=== PATIENT | female | born 1935 | race Caucasian/White ===

== ENCOUNTER → 2019-05-05 | Outpatient (CLI) | payer MEDICARE ==
--- NOTE | 2019-05-05 14:24 | Diagnostic Imaging Report ---
INDICATION: Left breast carcinoma, status post lumpectomy in 2017. Patient reportedly had a recent mammogram in January 2019. Patient reports left arm swelling and lump in the left axilla. COMPARISON: The patient's prior imaging is not available for comparison. FINDINGS: Sonographic interrogation of the area of swelling in the left axilla was performed. There is a large solid-appearing heterogeneous mass at this location measuring 4.2 x 2.5 x 3.8 cm. There is also an enlarged lymph node adjacent to this measuring 2.1 x 2.1 x 2.4 cm. Sonographic interrogation of the lumpectomy site was also performed. There is an irregular region of hypoechogenicity at the lumpectomy site. This could be post surgical. No fluid collection is seen. There does appear to be skin thickening. IMPRESSION: Large solid masses in the left axilla correlating with the patient's palpable abnormality. 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 Tissue sampling could be performed if clinically necessary using ultrasound guidance. Diagnostic mammography would be a consideration as well; however, we would need outside mammographic studies for comparison purposes. ACR BI-RADS Category 4: Suspicious abnormality. Result letter will be mailed to the patient. Note: At least 10% of breast cancer is not imaged by mammography. Dictated by: Dictated on workstation # [id number]
== END ==
LOC: RAD 10:59
PROVIDERS: ATTEND Internal Medicine Hematology & Oncology
DX: C50.912 Malignant neoplasm of unspecified site of left female breast (principal); R22.32 Localized swelling, mass and lump, left upper limb; Z98.890 Other specified postprocedural states
CPT/HCPCS: 76641

== ENCOUNTER → 2019-05-14 | Outpatient (CLI) | payer MEDICARE ==
[~2019-05-14] MED LIST: BARIUM SUSPENSION 2.1% (VANILLA SILQ) 450 ML PO ONE; CATHETER FLUSH 10 ML SYR IV PRN; HOLD METFORMIN - RECEIVED CONTRAST 20 ML VIAL IV SCH; IOHEXOL 350 MG/ML 100 ML (OMNIPAQUE 350) VIAL IV ONE; NS 100 ML (IVPB) BAG IV ONE
--- NOTE | 2019-05-14 13:10 | Diagnostic Imaging Report ---
PROCEDURE: CT chest, abdomen, and pelvis with contrast. TECHNIQUE: Multiple contiguous axial images were obtained through the chest, abdomen, and pelvis after the administration of intravenous contrast. Auto Exposure Controls were utilized during the CT exam to meet ALARA standards for radiation dose reduction. INDICATION: Breast cancer. Findings: No comparison available. There is a 3 mm right upper lobe pulmonary nodule (series 2, image 37). There is a 2 mm left lower lobe pulmonary nodule (series 2, image 44). No other nodules are seen. No edema or pneumonia. No pleural effusion or pneumothorax. Heart size is normal. No pericardial effusion. Aorta is normal in caliber. No central pulmonary embolism. There is a 2.3 x 1.7 cm left breast mass. There is a 3.9 x 3.6 cm left axillary lymph node. No internal mammary lymphadenopathy is seen. The right axillary or supraclavicular lymphadenopathy is seen. There is a 9 mm hyperenhancing focus in hepatic segment 8. A similar pulmonary lesion is seen in segment 5. These equilibrium the delayed phase in keeping with hemangiomas. Gallbladder is absent. No biliary ductal dilation. Portal vein is patent. Pancreas, spleen and left adrenal gland are normal. There is an indeterminate 14 x 18 mm right adrenal nodule. Right renal cyst is seen. No suspicious renal lesions are noted. No hydronephrosis. Urinary bladder is normal. There are no dilated loops of large or small bowel. There is diverticulosis without diverticulitis. There is an indeterminate 3.7 x 2.8 cm left pelvic sidewall fluid attenuation lesion, possibly a seroma or adnexal cyst. No abdominal or pelvic lymphadenopathy. No free fluid or air. Abdominal aorta is normal in caliber. There are no suspicious osseous lesions. Impression: 1. Left breast mass with left axillary lymphadenopathy. 2. There are 2 hyperenhancing liver lesions, consistent with hemangiomas given they equilibrate on the delayed phase. 3. Indeterminate right adrenal nodule, consider adrenal protocol CT. 4. Tiny pulmonary nodules are indeterminate. 5. Fluid attenuation left adnexal lesion, likely a postoperative seroma, but an ultrasound could be performed to determine if it is an ovarian cyst ff the ovaries are still present. Dictated by: Dictated on workstation # [id number]
== END ==
LOC: RAD 10:50
PROVIDERS: ATTEND Internal Medicine Hematology & Oncology
DX: N63.20 Unspecified lump in the left breast, unspecified quadrant (principal); C50.919 Malignant neoplasm of unspecified site of unspecified female breast; K76.9 Liver disease, unspecified; E27.8 Other specified disorders of adrenal gland; N85.8 Other specified noninflammatory disorders of uterus; R59.0 Localized enlarged lymph nodes
CPT/HCPCS: 71260; 74177

== ENCOUNTER → 2019-05-23 | Outpatient (CLI) | payer MEDICARE, OTHER ==
[~2019-05-23] VITALS: Ht 160 cm; Wt 107.0 kg
[~2019-05-23] MED LIST changes: -BARIUM SUSPENSION 2.1% (VANILLA SILQ) 450 ML PO ONE; -CATHETER FLUSH 10 ML SYR IV PRN; -HOLD METFORMIN - RECEIVED CONTRAST 20 ML VIAL IV SCH; -IOHEXOL 350 MG/ML 100 ML (OMNIPAQUE 350) VIAL IV ONE; +LIDOCAINE 1% INJ 20 ML 20 ML VIAL INJ ONE; -NS 100 ML (IVPB) BAG IV ONE
--- NOTE | 2019-05-23 22:59 | Diagnostic Imaging Report ---
INDICATION: Left axillary mass. Patient presents for ultrasound-guided biopsy. Patient was brought to the procedure room, placed on the bed in the supine position. Left arm was raised. Ultrasound imaging of the left breast was performed to evaluate appropriate entry site. Left breast was then prepped and draped in the usual sterile fashion. Small amount of 1% lidocaine was utilized for local anesthesia. Total of 4 core biopsies of a large mass in the left axilla was performed utilizing a 14-gauge Achieve needle. A marker clip was then deployed within the lesion. Needle was removed and hemostasis was obtained using manual compression. Patient tolerated the procedure well and was sent for postprocedure mammogram in satisfactory condition. IMPRESSION: Successful ultrasound guided core biopsy of the large mass in the left axilla. Pathology results are currently pending. Dictated by: Dictated on workstation # [id number]
--- NOTE | 2019-05-23 23:02 | Diagnostic Imaging Report ---
INDICATION: Left axillary mass. Patient is status post ultrasound-guided biopsy. A single 2-D left MLO view was performed post left axillary mass biopsy. This view demonstrates a marker clip within the mass in the left axilla. IMPRESSION: Marker clip located within the left axillary mass. Dictated by: Dictated on workstation # [id number]
== END ==
LOC: RAD 10:44
PROVIDERS: ATTEND Surgery
DX: N63.32 Unspecified lump in axillary tail of the left breast (principal)
CPT/HCPCS: 19083

== ENCOUNTER → 2019-05-27 | Outpatient (CLI) | payer MEDICARE ==
--- NOTE | 2019-05-27 12:59 | Diagnostic Imaging Report ---
INDICATION: Breast carcinoma, restaging. TECHNIQUE: Serum blood glucose level at the time of injection was 123 mg/dL. The patient was administered 14.7 mCi of F-18 FDG intravenously in the right forearm, and PET imaging from the top of the skull to mid thighs was performed. Noncontrast CT was also performed for attenuation correction and anatomic correlation. COMPARISON: No prior PET study is available for comparison. Comparison is made with prior CT of the chest, abdomen, and pelvis from 05/14/2019. FINDINGS: There is symmetric activity throughout the brain. Physiologic activity within the soft tissues of neck is identified. There is hypermetabolism identified in the left supraclavicular region with SUV max of approximately 6.6. This does correspond to some soft tissue density at this location, likely supraclavicular lymphadenopathy. There are multiple foci of abnormal uptake in the region of the left axilla with the dominant mass in the left axilla demonstrating an SUV max of approximately 10.1. This was recently biopsied. There are additional smaller areas of hypermetabolism. Retropectoral nodular regions of uptake are seen with SUV max of approximately 4.6. No hypermetabolism in the left or right breast is seen. No mediastinal or hilar hypermetabolism is identified. No pulmonary parenchymal hypermetabolism is identified. Imaging through the abdomen and pelvis demonstrates physiologic activity within the GI and tracts. There is some mild hypermetabolism associated with the right adrenal nodule with SUV max of approximately 4.8. No other suspicious regions are identified. IMPRESSION: 1. Left supraclavicular as well as left axillary hypermetabolic foci consistent with metastatic disease. No breast hypermetabolism is identified. No mediastinal, hilar, or pulmonary parenchymal hypermetabolism is seen. 2. Hypermetabolism associated with the right adrenal nodule. Metastatic lesion cannot be entirely excluded. No other significant abnormality is seen. Dictated by: Dictated on workstation # [id number]
== END ==
LOC: RAD 10:09
PROVIDERS: ATTEND Internal Medicine Hematology & Oncology
DX: E27.8 Other specified disorders of adrenal gland (principal); C50.919 Malignant neoplasm of unspecified site of unspecified female breast

== ENCOUNTER → 2019-06-09 | Outpatient (CLI) | payer MEDICARE ==
[~2019-06-09] MED LIST changes: -LIDOCAINE 1% INJ 20 ML 20 ML VIAL INJ ONE; +RT-ALBUTEROL SULF 2.5 MG/3 ML PRE-MIX VIAL INH ONE
== END ==
LOC: RT 15:56
PROVIDERS: ATTEND Nurse Practitioner Family
DX: I89.0 Lymphedema, not elsewhere classified (principal); E66.01 Morbid (severe) obesity due to excess calories; R06.00 Dyspnea, unspecified
CPT/HCPCS: 94060; 94726; 94729

== ENCOUNTER → 2019-07-01 | Outpatient (CLI) | payer MEDICARE ==
[~2019-07-01] VITALS: Ht 160 cm; Wt 109.0 kg
[~2019-07-01] MED LIST changes: +CATHETER FLUSH 10 ML SYR IV PRN; +REGADENOSON 0.4 MG/5 ML SYR (LEXISCAN) IV ONE; -RT-ALBUTEROL SULF 2.5 MG/3 ML PRE-MIX VIAL INH ONE
--- NOTE | 2019-07-01 14:26 | Diagnostic Imaging Report ---
PROCEDURE: US carotid duplex, bilateral. TECHNIQUE: Multiple real-time grayscale images were obtained over the carotid arteries in various projections, bilaterally. Additional spectral analysis and color Doppler duplex images were also obtained. INDICATION: Hypertension and coronary artery disease. FINDINGS: No significant plaquing is identified in either carotid system. Velocities are normal bilaterally. No velocity elevation or stenosis is detected. Both vertebral arteries show antegrade flow. IMPRESSION: No evidence of a hemodynamically significant stenosis. Parameters based on the consensus panel Kunz-Scale and Doppler ultrasound criteria published July 2003, Radiology, Volume 229. DOPPLER (peak systolic velocity M/S Right Left CCA .77 .92 ICA Proximal .63 .70 ICA Mid .89 .69 ICA Distal .80 1.2 RATIO 1.2 1.3 ECA .87 .68 VERT .34 .65 Dictated by: Dictated on workstation # [id number]
--- NOTE | 2019-07-03 18:29 | STRESS TEST ---
DATE OF SERVICE: 07/01/2019 RESTING AND POST REGADENOSON TECHNETIUM-99M TETROFOSMIN SPECT CT IMAGING ORDERING PHYSICIAN: Dr. Patiño. PRIMARY CARE PHYSICIAN: Dr. Block. CLINICAL DIAGNOSES: Coronary artery disease, chest discomfort. Baseline images were carried out after injection of 10.41 mCi of technetium-99m Tetrofosmin. This was followed by 0.4 mg regadenoson and 10.46 mCi of technetium-99m Tetrofosmin for stress imaging. The electrocardiogram showed sinus rhythm with nonspecific ST abnormality at baseline. The electrocardiogram did not change significantly with the regadenoson infusion. Review of images at rest and following stress does not indicate any significant perfusion defects consistent with significant myocardial ischemia or infarction. Gated images show normal global left ventricular systolic function with normal regional wall motion. Left ventricular ejection fraction is calculated to be 71%. Left ventricular end diastolic volume is 51 mL. TID is absent (1.02). CONCLUSIONS: 1. No evidence of any significant myocardial ischemia or infarction on this study. 2. Normal regional wall motion. 3. Normal global left ventricular systolic function with a calculated ejection fraction of 71%. Job ID: [id number] DocumentID: [id number] Dictated Date: 07/03/2019 17:34:34 [employer] Date: 07/03/2019 18:28:01 Dictated By: BARTOLO PATIÑO MD, MA, FACP, FACC,
== END ==
LOC: CARD 07:43
PROVIDERS: ATTEND Internal Medicine Cardiovascular Disease
DX: I25.10 Atherosclerotic heart disease of native coronary artery without angina pectoris (principal); I10 Essential (primary) hypertension; J44.9 Chronic obstructive pulmonary disease, unspecified
CPT/HCPCS: 78452; 93017; 93880

== ENCOUNTER 2019-07-17 12:42 | Outpatient (RCR) | payer MEDICARE, OTHER ==
[2019-05-08 13:05] LABS: BASOPHILS % (AUTO) 1 % (0-10); EOSINOPHILS # (AUTO) 0.1 10^3/uL (0.0-0.3); EOSINOPHILS % (AUTO) 2 % (0-10); HEMATOCRIT 39 % (35-52); HEMOGLOBIN 12.8 G/DL (11.5-16.0); LYMPHOCYTES # (AUTO) 0.5 X 10^3 (1.0-4.0); LYMPHOCYTES % (AUTO) 8 % (12-44); MEAN CORPUSCULAR HEMOGLOBIN 29 PG (25-34); MEAN CORPUSCULAR HGB CONC 33 G/DL (32-36); MEAN CORPUSCULAR VOLUME 88 FL (80-99); MONOCYTES # (AUTO) 0.5 X 10^3 (0.0-1.0); MONOCYTES % (AUTO) 7 % (0-12); NEUTROPHILS # (AUTO) 5.7 X 10^3 (1.8-7.8); NEUTROPHILS % (AUTO) 83 % (42-75); PLATELET COUNT 218 10^3/uL (130-400); RED CELL DISTRIBUTION WIDTH 13.8 % (10.0-14.5); WHITE BLOOD COUNT 6.9 10^3/uL (4.3-11.0)
[2019-05-08 13:20] LABS: ALANINE AMINOTRANSFERASE 22 U/L (0-55); ALBUMIN 3.7 GM/DL (3.2-4.5); ALKALINE PHOSPHATASE 101 U/L (40-136); BILIRUBIN,TOTAL 0.3 MG/DL (0.1-1.0); BUN/CREATININE RATIO 30; CARBON DIOXIDE 26 MMOL/L (21-32); CHLORIDE 104 MMOL/L (98-107); CREATININE SERUM 0.73 MG/DL (0.60-1.30); GFR ESTIMATED > 60; GLUCOSE 129 MG/DL (70-105); POTASSIUM 3.8 MMOL/L (3.6-5.0); SODIUM 140 MMOL/L (135-145); TOTAL PROTEIN 6.4 GM/DL (6.4-8.2)
== END 2019-07-30 | disposition home or self-care (01) ==
LOC: ONC 12:42
PROVIDERS: ATTEND Internal Medicine Hematology & Oncology
DX: C50.912 Malignant neoplasm of unspecified site of left female breast (principal); Z98.890 Other specified postprocedural states
CPT/HCPCS: 36415; 80053; 85025; 99213; 99214

== ENCOUNTER 2019-08-27 12:29 | Outpatient (RCR) | payer MEDICARE ==
[~2019-08-27] VITALS: Ht 160 cm; Wt 108.5 kg
[2019-08-27 13:03] VITALS: BP 118/60
[2019-09-23 13:00] VITALS: BP 140/60
--- NOTE | 2019-09-23 13:36 | NUR ---
Pt came for pulmonary rehab; she had just started to perform band warm up exercises, when she stated she was having a pain in her neck and into her head.I asked pt if she has had pain before she stated no; had pt rest. Placed warmed blanket on neck; she stated her right arm (same side as pain) hurt a little too; warm blanket placed on arm too. She stated is was feeling al little better with heat. Pt's HR normal, BP 116/60, pulse feels normal. She states that her physician does have her on pain meds, but she does not take while driving. I contacted her primary physician's office (Dr. Block); physician is working outside of office today, unavailable. I asked pt if she would like to go to [facility] to get checked out, she refused. Pt rested, then went home to take medication and relax. I instructed pt to see physician if pain did not subside, she stated she would. No exercise performed today, will see how pt feels ; she does have a follow up appointment scheduled with Dr. Block for Sunday.
[2019-09-26] MEDS ORDERED: MELA1TAB35 PO (16:15)
[2019-09-26] MEDS ORDERED: OMEP20CA18 PO (16:15)
[2019-09-26] MEDS ORDERED: CALC-921 PO (16:15)
[2019-09-26] MEDS ORDERED: CARV6.25 PO (16:15)
[2019-09-26] MEDS ORDERED: SERT50TA9 PO (16:15)
[2019-09-26] MEDS ORDERED: ACHD5005 PO (16:15)
[2019-09-26] MEDS ORDERED: BUDE10.2 IH (16:15)
[2019-09-26] MEDS ORDERED: CRAN500T2 PO (16:15)
[2019-09-26] MEDS ORDERED: CASCARA SAGRADA PO (16:15)
[2019-09-26] MEDS ORDERED: HYDR50TA3 PO (16:15)
[2019-09-26] MEDS ORDERED: TRM50T PO (16:15)
[2019-09-26] MEDS ORDERED: LOPE2CAP PO (16:15)
[2019-09-26] MEDS ORDERED: DCS100C PO (16:15)
[2019-09-26] MEDS ORDERED: ACET-2267 PO (16:15)
[2019-09-26] MEDS ORDERED: GABA-486 PO (16:15)
[2019-09-26] MEDS ORDERED: DEXT15CA28 PO (16:15)
[2019-09-26] MEDS ORDERED: FURO-124 PO (16:15)
[2019-09-26] MEDS ORDERED: IBUP-844 PO (16:15)
[2019-09-26] MEDS ORDERED: RT-ALBUINH IH (16:15)
[2019-09-26] MEDS ORDERED: LIDO76.5 TP (16:15)
[2019-09-28] MEDS ORDERED: HYDR50TA3 PO (12:08)
[2019-09-28] MEDS ORDERED: PRED10TA22 PO (12:08)
== END 2019-11-25 | disposition home or self-care (01) ==
LOC: PULM 12:29
PROVIDERS: ATTEND Nurse Practitioner Family
DX: J43.9 Emphysema, unspecified (principal); R09.02 Hypoxemia; E66.1 Drug-induced obesity
CPT/HCPCS: 99211

== ENCOUNTER 2019-09-26 13:35 | Observation (INO) | payer MEDICARE ==
[~2019-09-26] VITALS: Ht 160 cm; Wt 113.6 kg
[2019-09-26] MEDS ORDERED: MILK OF MAGNESIA 400 MG/5 ML 30 ML UDC PO PRN (14:00)
[2019-09-26] MEDS ORDERED: ONDANSETRON 4 MG (ZOFRAN) ORAL DISSOLVE TAB PO PRN (14:00)
[2019-09-26] MEDS ORDERED: ANTACID SUSP 30 ML UDC (MYLANTA) PO PRN (14:00)
[2019-09-26] MEDS ORDERED: HYDROmorphone 2 MG/ML VIAL (DILAUDID) IV PRN (14:00)
[2019-09-26] MEDS ORDERED: ACETAMINOPHEN 325 MG TABLET PO PRN (14:00)
[2019-09-26] MEDS ORDERED: POLYETHYLENE GLYCOL 17 GM (MIRALAX) PACK PO PRN (14:00)
[2019-09-26] MEDS ORDERED: LACTULOSE SYRUP 10GM/15ML (ENULOSE) 30ML UDC PO PRN (14:00)
[2019-09-26] MEDS ORDERED: diphenhydrAMINE 50 MG/ML INJ (BENADRYL) IVP PRN (14:00)
[2019-09-26] MEDS ORDERED: MELATONIN 3 MG TABLET PO PRN (14:00)
[2019-09-26] MEDS ORDERED: BISACODYL 10 MG SUPP (DULCOLAX) PR PRN (14:00)
[2019-09-26] MEDS ORDERED: CALCIUM CARBONATE 500 MG (TUMS) TAB.CHEW PO PRN (14:00)
[2019-09-26] MEDS ORDERED: ALPRAZolam 0.25 MG (XANAX) TAB PO PRN (14:00)
[2019-09-26] MEDS ORDERED: ONDANSETRON 4 MG/2 ML (SDV) Z0FRAN IV PRN (14:00)
--- NOTE | 2019-09-26 15:00 | NUR ---
JOSE CANALES admitted to room 432-1, with an admitting diagnosis of soa, on 09/26/19 from home via wheelchair, accompanied by friend. JOSE CANALES introduced to surroundings, call light, bed controls, phone, TV, temperature control, lights, meal times, smoking policy, visitor policy, side rail policy, bathrooms and showers. Patient Rights given to patient in the handbook. JOSE CANALES verbalizes understanding that [facility] is not responsible for the loss or damage to any personal effects or valuables that are kept in the patients possession during their hospitalization. The following Patient Care Plans were discussed with the patient: Discharge Planning, medications, dehydration, and medications. JOSE CANALES verbalizes understanding of Interdisciplinary Patient Education. Patient and/or family were informed about the Rapid Response Team and its purpose.
[2019-09-26 15:27] VITALS: BP 138/77
[2019-09-26 15:30] VITALS: BP 138/77
--- NOTE | 2019-09-26 15:51 | Progress Note ---
Progress Note Scribed by Luz Purdy Pt states that she just cannot breathe. She is experiencing extreme SOB and she questions about what she can do. I state that she could possibly have some fluid on that lung that we could do some tests to see. She questions if she would have to go to the hospital. She states that she is coughing quite a bit and she cant lay down at night. She states that she sits up. She states that she takes the Tramadol and her hydrocodone and she still gets the sharp pains through her breasts. She states that she is not running a fever at home. Her bowels have remained regular though she is taking the pain medications. I state that with this breast cancer it can affect things directly and indirectly. I state that I need to take a listen to her to see where we are. Pt states that she can't get anything done at her house. She states that she has another knot coming along and she found this when she was washing under her arms. This most recent lump doesn't hurt as bad as the other one but is still a bit painful. I state that her lungs sound wheezy and I don't know if it is fluid or not. I st ate that it might not be a bad idea for her to have a hospital stay while we solve these problems and if not then it will be a longer and more drawn out if not. Pt states that she can still do some cooking and she likes to do that. She states that she just can't sweep the floors and she cannot clean the bathroom. Pt states that when Dr. Mosher put her on O2 he recommended hospice to come in. I state that I need to check the hospital to see if there is an available bed. Pt will be admitted to [facility]. I state that what we are going to do is put her in for observation right now just to do some tests and I will likely shift her to inpatient once I know what is going on. I state that during her observation admission she would need to bring her own medications. She states she needs to go get her medications and she states she won't be able to get over there until 4:30 or 5:00 and I state that if she could get there sooner then I could run more tests. She will get her stuff done and be at [facility] as soon as possible GORDY DESAI DO Sep 26, 2019 15:51
[2019-09-26 15:52] LABS: BASOPHILS % (AUTO) 1 % (0-10); EOSINOPHILS # (AUTO) 0.1 10^3/uL (0.0-0.3); EOSINOPHILS % (AUTO) 2 % (0-10); HEMATOCRIT 38 % (35-52); HEMOGLOBIN 12.3 G/DL (11.5-16.0); LYMPHOCYTES # (AUTO) 0.5 X 10^3 (1.0-4.0); LYMPHOCYTES % (AUTO) 10 % (12-44); MEAN CORPUSCULAR HEMOGLOBIN 28 PG (25-34); MEAN CORPUSCULAR HGB CONC 33 G/DL (32-36); MEAN CORPUSCULAR VOLUME 86 FL (80-99); MEAN PLATELET VOLUME 9.9 FL (7.4-10.4); MONOCYTES # (AUTO) 0.5 X 10^3 (0.0-1.0); MONOCYTES % (AUTO) 9 % (0-12); NEUTROPHILS # (AUTO) 4.3 X 10^3 (1.8-7.8); NEUTROPHILS % (AUTO) 78 % (42-75); PLATELET COUNT 223 10^3/uL (130-400); RED CELL DISTRIBUTION WIDTH 13.5 % (10.0-14.5); WHITE BLOOD COUNT 5.5 10^3/uL (4.3-11.0)
[2019-09-26 15:53] LABS: ABG BASE EXCESS 5.2 MMOL/L (-2.5-2.5); ABG OXYGEN SATURATION 98 % (94-100); ABG PCO2 45 MMHG (35-45); ABG PH 7.43 (7.37-7.43); ABG PO2 107 MMHG (79-93); ABG TCO2 30.7 MMOL/L (21.0-31.0)
[2019-09-26] MEDS ORDERED: RT-ALBUTEROL/IPRATROPIUM 3 ML (DUONEB) VIAL ONE (15:56)
[2019-09-26 15:57] LABS: ALLENS TEST POS; VENTILATOR NO
[2019-09-26 15:58] LABS: PATIENT TEMP 37.2
[2019-09-26] MEDS ORDERED: RT-ALBUTEROL/IPRATROPIUM 3 ML (DUONEB) VIAL INH PRN (16:00)
[2019-09-26 16:13] LABS: PROTHROMBIN TIME PATIENT 13.5 SEC (12.2-14.7)
[2019-09-26 16:14] LABS: ALANINE AMINOTRANSFERASE 18 U/L (0-55); ALBUMIN 3.9 GM/DL (3.2-4.5); ALKALINE PHOSPHATASE 93 U/L (40-136); BILIRUBIN,TOTAL 0.3 MG/DL (0.1-1.0); BUN/CREATININE RATIO 27; CALCIUM 9.1 MG/DL (8.5-10.1); CARBON DIOXIDE 27 MMOL/L (21-32); CHLORIDE 104 MMOL/L (98-107); CREATININE SERUM 0.74 MG/DL (0.60-1.30); GFR ESTIMATED > 60; GLUCOSE 114 MG/DL (70-105); POTASSIUM 3.5 MMOL/L (3.6-5.0); SODIUM 141 MMOL/L (135-145); TOTAL PROTEIN 6.8 GM/DL (6.4-8.2)
[2019-09-26] MEDS ORDERED: HYDR-3812 PO (16:15)
[2019-09-26] MEDS ORDERED: OMEP-280 PO (16:15)
[2019-09-26] MEDS ORDERED: LOPE2CAP PO (16:15)
[2019-09-26] MEDS ORDERED: MELA1TAB35 PO (16:15)
[2019-09-26] MEDS ORDERED: CASCARA SAGRADA PO (16:15)
[2019-09-26] MEDS ORDERED: LIDO76.5 TP (16:15)
[2019-09-26] MEDS ORDERED: CRAN500T2 PO (16:15)
[2019-09-26] MEDS ORDERED: CALC-921 PO (16:15)
[2019-09-26] MEDS ORDERED: FURO-124 PO (16:15)
[2019-09-26] MEDS ORDERED: BUDE10.2 IH (16:15)
[2019-09-26] MEDS ORDERED: DOCU-244 PO (16:15)
[2019-09-26] MEDS ORDERED: CARV6.25 PO (16:15)
[2019-09-26] MEDS ORDERED: RT-ALBUINH IH (16:15)
[2019-09-26] MEDS ORDERED: ACET-2267 PO (16:15)
[2019-09-26] MEDS ORDERED: IBUP-844 PO (16:15)
[2019-09-26] MEDS ORDERED: SERT50TA9 PO (16:15)
[2019-09-26] MEDS ORDERED: HYDR50TA3 PO (16:15)
[2019-09-26] MEDS ORDERED: TRM50T PO (16:15)
[2019-09-26] MEDS ORDERED: DEXT15CA28 PO (16:15)
[2019-09-26] MEDS ORDERED: GABA-486 PO (16:15)
--- NOTE | 2019-09-26 16:17 | NUR ---
PATIENT HAD HER BOTTLES WITH HER. WE WENT OVER HOW SHE TAKES THEM. STEFANY BOTTLE: 03-31-19 LASIX 40MG DAILY #30 (STATES SHE ONLY TAKES IT PRN) [facility]: 09-24-19 OMEPRAZOLE 20MG BID #60 09-24-19 GABAPENTIN 100MG TID #90 09-11-19 TRAMADOL 50MG TID PRN #60 09-08-19 HYDROCODONE 5-325MG BID PRN #30 09-08-19 DOK 100MG BID #60 08-28-19 IBU 600MG Q6H PRN #120 08-02-19 SERTRALINE 50MG 1/2 DAILY #45 06-25-19 COREG 6.25MG BID #60 06-18-19 HCTZ 50MG 1/2 DAILY #45 PROAIR INHALER PRN SHE ALSO STATES SHE HAS SYMBICORT 160 2 PUFFS BID - SHE DOES NOT HAVE THIS HERE WITH HER OTC: ROBITUSSIN CAPS PRN CASCARA SAGRADA DAILY LOPERAMIDE UD PRN ROLAIDS PRN TYLENOL PRN ASPERCREAM QID PRN CRANBERRY DAILY MELATONIN LEMON BALM 10MG HS SHE DOES NOT TAKE THE FOLLOWING THAT ARE IN HER BAG, SHE KEEPS THEM IN CASE SHE HAS TO RE START THEM IN THE FUTURE: SENCRISS S OMEPRAZOLE OTC (ONLY USES WHEN HAVING TROUBLE WITH INSURANCE FILLING HERS) ASPIRIN 81MG MAG 500MG ELIQUIS 5MG BID FROM 09-25-18 #60 XARELTO 15MG DAILY #42 FROM 03-07-18 STEFANY NITROFURANTOIN MONO 100MG DAILY #30 05-23-19 CLINDAMYCIN 300MG TID #15 12-11-18
[2019-09-26] MEDS ORDERED: IOHEXOL 350 MG/ML 100 ML (OMNIPAQUE 350) VIAL IV ONE (16:30)
[2019-09-26] MEDS ORDERED: HOLD METFORMIN - RECEIVED CONTRAST 20 ML VIAL IV SCH (16:30)
[2019-09-26] MEDS ORDERED: NS 100 ML (IVPB) BAG IV ONE (16:30)
--- NOTE | 2019-09-26 16:44 | Diagnostic Imaging Report ---
EXAMINATION: Chest 2 view HISTORY: Shortness of breath COMPARISON: None available. FINDINGS: The lungs are clear without edema or pneumonia. No pleural effusion or pneumothorax. Heart size is normal. IMPRESSION: 1. Clear lungs. Dictated by: Dictated on workstation # [id number]
--- NOTE | 2019-09-26 17:02 | Diagnostic Imaging Report ---
EXAMINATION: CT angiography of the chest. TECHNIQUE: Contrast enhanced thin section helical images were obtained through the chest with intravenous contrast timed for the optimal opacification of the arterial structures per CTA protocol. Post-processing, reconstructions and interpretation of angiographic images of the vessels was performed. 3D MIP reconstructions were performed and reviewed. All CT scans use one or more of the following dose optimizing techniques: automated exposure control, MA and/or KvP adjustment based on a patient size and exam type, or iterative reconstruction. HISTORY: Shortness of breath. COMPARISON: 05/14/2019. FINDINGS: There is no pulmonary embolism. The aorta is normal in caliber. Left axillary lymphadenopathy has significantly increased. Lymph node now measures 4.3 x 5.2 cm, previously 3.0 x 2.9 cm. There is new right axillary lymphadenopathy with lymph nodes measuring up to 15 mm. There is left supraclavicular lymphadenopathy. There is skin thickening in the left breast, incompletely evaluated as it is excluded from the [id number]. No mediastinal lymphadenopathy. Limited views of the upper abdomen reveal large right adrenal nodule which measures 3.5 x 2.0 cm. There is also a smaller left adrenal nodule measuring 13 mm. There is retroperitoneal lymphadenopathy with nodes measuring up to 15 mm. Lungs are clear without edema or pneumonia. No pleural effusion or pneumothorax. No suspicious pulmonary nodules. There are no suspicious osseous lesions. IMPRESSION: 1. Clear lungs. No pulmonary embolism. 2. Progression of disease with large left axillary lymphadenopathy and new right axillary lymphadenopathy. Upper abdominal lymphadenopathy and adrenal nodule is progressed as well. Dictated by: Dictated on workstation # [id number]
[2019-09-26] MEDS ORDERED: KCL 10 MEQ TAB (MICRO K) PO NR (17:15)
[2019-09-26] MEDS: ENOXAPARIN 40 MG/0.4 ML (LOVENOX) SYR SC SCH (17:22)
[2019-09-26] MEDS: methylPREDNISolone 40 MG/ML (Solu-MEDROL) VIAL IV SCH (17:29)
[2019-09-26 19:35] VITALS: BP 121/72
[2019-09-26] MEDS: DOCUSATE SODIUM 100 MG (COLACE) CAP PO SCH (20:13)
[2019-09-26] MEDS: SENNOSIDES 8.6 MG (SENOKOT) TAB PO SCH (20:13)
[2019-09-26] MEDS: RT-ALBUTEROL/IPRATROPIUM 3 ML (DUONEB) VIAL INH SCH (20:46)
[2019-09-26] MEDS: RT-BUDESONIDE NEBS 0.5 MG/2ML (PULMICORT) AMP INH SCH (20:56)
[2019-09-27] VITALS: BP 173/74
[2019-09-27] MEDS: methylPREDNISolone 40 MG/ML (Solu-MEDROL) VIAL IV SCH ×5 (00:25→23:44)
[2019-09-27] MEDS: HYDROcodone/APAP 5 MG/325 MG (LORTAB) TAB PO PRN ×2 (00:33→09:52)
[2019-09-27] MEDS: RT-ALBUTEROL/IPRATROPIUM 3 ML (DUONEB) VIAL INH SCH ×4 (02:28→21:21)
[2019-09-27 04:55] VITALS: BP 159/67
[2019-09-27 06:26] LABS: BASOPHILS % (AUTO) 0 % (0-10); EOSINOPHILS % (AUTO) 0 % (0-10); HEMATOCRIT 41 % (35-52); HEMOGLOBIN 13.4 G/DL (11.5-16.0); LYMPHOCYTES # (AUTO) 0.3 X 10^3 (1.0-4.0); LYMPHOCYTES % (AUTO) 5 % (12-44); MEAN CORPUSCULAR HEMOGLOBIN 28 PG (25-34); MEAN CORPUSCULAR HGB CONC 33 G/DL (32-36); MEAN CORPUSCULAR VOLUME 86 FL (80-99); MEAN PLATELET VOLUME 10.3 FL (7.4-10.4); MONOCYTES # (AUTO) 0.1 X 10^3 (0.0-1.0); MONOCYTES % (AUTO) 2 % (0-12); NEUTROPHILS # (AUTO) 5.6 X 10^3 (1.8-7.8); NEUTROPHILS % (AUTO) 93 % (42-75); PLATELET COUNT 239 10^3/uL (130-400); RED CELL DISTRIBUTION WIDTH 13.6 % (10.0-14.5)
[2019-09-27] MEDS: KCL 10 MEQ TAB (MICRO K) PO SCH (06:52)
[2019-09-27 06:56] LABS: ALANINE AMINOTRANSFERASE 18 U/L (0-55); ALBUMIN 4.1 GM/DL (3.2-4.5); ALKALINE PHOSPHATASE 87 U/L (40-136); BILIRUBIN,TOTAL 0.3 MG/DL (0.1-1.0); BUN/CREATININE RATIO 22; CALCIUM 9.4 MG/DL (8.5-10.1); CARBON DIOXIDE 20 MMOL/L (21-32); CHLORIDE 104 MMOL/L (98-107); CREATININE SERUM 0.81 MG/DL (0.60-1.30); GFR ESTIMATED > 60; GLUCOSE 150 MG/DL (70-105); POTASSIUM 4.3 MMOL/L (3.6-5.0); SODIUM 140 MMOL/L (135-145); TOTAL PROTEIN 7.2 GM/DL (6.4-8.2)
--- NOTE | 2019-09-27 07:53 | Pulmonary Consultation ---
History of Present Illness History of Present Illness Date Seen by Provider: Sep 27, 2019 Time Seen by Provider: 07:48 Date of Admission History of Present Illness 84yo with hx of COPD directly admitted secondary to worsening SOB, wheezing, coughing, orthopenia. Denies f/ns/c. = Allergies and Home Medications Allergies Coded Allergies: Penicillins (Verified Allergy, Unknown, 09/26/19) Sulfa (Sulfonamide Antibiotics) (Verified Allergy, Unknown, 09/26/19) Home Medications Acetaminophen 500 Mg Tablet, 500-1,000 MG PO Q4H PRN for PAIN-MILD (1-4), (Reported) Albuterol Sulfate 1 Puff Puff, 2 PUFF IH Q4H PRN for SHORTNESS OF BREATH, (Reported) 1 PUFF = 90 MCG Budesonide/Formoterol Fumarate 10.2 Gm Hfa.aer.ad, 2 PUFF IH BID, (Reported) Calcium Carb/Magnesium Hydrox 1 Each Tab.chew, 1 TAB.CHEW PO TID PRN for INDIGESTION, (Reported) Carvedilol 6.25 Mg Tablet, 6.25 MG PO BID, (Reported) Cranberry Extract 500 Mg Tablet, 1 TAB PO DAILY, (Reported) Dextromethorphan HBr 15 Mg Capsule, 15 MG PO Q8H PRN for COUGH, (Reported) Docusate Sodium 100 Mg Capsule, 100 MG PO BID, (Reported) Furosemide 40 Mg Tablet, 40 MG PO DAILY PRN for SWELLING, (Reported) Gabapentin 100 Mg Capsule, 100 MG PO TID, (Reported) Hydrochlorothiazide 50 Mg Tablet, 25 MG PO DAILY, (Reported) TAKES 1/2 (50MG) TABLET Hydrocodone/Acetaminophen 1 Each Tablet, 1 TAB PO BID PRN for PAIN-MODERATE (5- 7), (Reported) Ibuprofen 600 Mg Tablet, 600 MG PO Q6H PRN for PAIN-MILD (1-4), (Reported) Lidocaine HCl 76.5 Gm Cream..g., TP QID PRN for MUSCLE PAIN, (Reported) Loperamide HCl 2 Mg Capsule, 2 MG PO UD PRN for DIARRHEA, (Reported) Melatonin/Lemon [place] Extr 1 Each Tablet, 1 TAB PO HS, (Reported) Omeprazole 20 Mg Capsule.dr, 20 MG PO BID, (Reported) Sertraline HCl 50 Mg Tablet, 25 MG PO DAILY, (Reported) TAKES 1/2 (50MG) TABLET Tramadol HCl 50 Mg Tablet, 50 MG PO TID PRN for PAIN-MODERATE (5-7), (Reported) [Flory Hannah] , 1 CAP PO DAILY, (Reported) Past Guudaiv-Rjpcje-Wozvqq Hx Patient Social History Alcohol Use: Denies Use Recreational Drug Use: No Former Smoker, Quit: Aug 27, 1997 Recent Foreign Travel: No Contact w/Someone Who Travel: No Recent Infectious Disease Expo: Yes Recent Hopitalizations: No Immunizations Up To Date Date of Pneumonia Vaccine: Sep 26, 2016 Seasonal Allergies Seasonal Allergies: No Past Medical History COPD, Emphysema Cardiac: Yes Neurological: No : No Sexually Transmitted Disease: No HIV/AIDS: No Genitourinary: No Gastrointestinal: Yes Gastroesophageal Reflux Musculoskeletal: Yes Arthritis Endocrine: No HEENT: Yes Cataract Cancer: Yes Breast Psychosocial: No Integumentary: No Blood Disorders: No Adverse Reaction/Blood Tranf: No Sepsis Event Evaluation Height, Weight, BMI Height: 5'3.00" Weight: 239lbs. 2.0oz. 108.535404aq; 42.69 BMI Method: Exam Exam Vital Signs Date Time Temp Pulse Resp B/P (MAP) Pulse Ox O2 Delivery O2 Flow Rate FiO2 09/27/19 07:00 69 09/27/19 04:55 36.3 76 20 159/67 (97) 96 Nasal Cannula 2.00 09/27/19 01:00 81 09/27/19 00:00 36.7 81 20 173/74 (107) 95 Nasal Cannula 2.00 09/26/19 20:56 96 Nasal Cannula 2.00 09/26/19 20:46 95 Nasal Cannula 2.00 09/26/19 20:15 96 Nasal Cannula 2.00 09/26/19 19:35 36.8 69 18 121/72 (88) 98 Nasal Cannula 2.00 09/26/19 19:00 72 09/26/19 17:07 72 09/26/19 16:00 97 Nasal Cannula 2.00 09/26/19 16:00 97 Nasal Cannula 2.00 09/26/19 15:50 37.2 73 98 09/26/19 15:30 37.2 71 20 138/77 98 Nasal Cannula 2.00 2.00 09/26/19 15:27 37.2 71 20 138/77 (97) 98 Nasal Cannula 2.00 I & O 09/27/19 07:00 Intake Total 720 ml Output Total 450 ml Balance 270 ml Height & Weight Height: 5'3.00" Weight: 239lbs. 2.0oz. 108.690337bv; 42.69 BMI Method: Capillary Refill: Less Than 3 Seconds Results Lab Laboratory Tests 09/26/19 15:35 09/27/19 06:18 Assessment/Plan Assessment/Plan Worsening SOB COPDAE -PT has home 02 -ABG reviewed -Solumedrol -02 -CTA is neg for acute process -SVNS Breast cancer -PT states chemo made her very sick and she does not want chemo. -PT follows with oncology -I discussed hospice with patient and she states that is what she wants. I explained to pt she can go with any hospice group she wants. She wants to go with [facility]. -Will have RN fax face sheet to [facility]. Debility MAXINE HOWARD DO Sep 27, 2019 07:53
[2019-09-27 08:00] VITALS: BP 121/60
[2019-09-27] MEDS: DOCUSATE SODIUM 100 MG (COLACE) CAP PO SCH ×2 (09:04→19:58)
[2019-09-27] MEDS: SENNOSIDES 8.6 MG (SENOKOT) TAB PO SCH ×2 (09:06→19:59)
[2019-09-27] MEDS: RT-BUDESONIDE NEBS 0.5 MG/2ML (PULMICORT) AMP INH SCH ×2 (10:38→21:22)
[2019-09-27 12:00] VITALS: BP 152/67
--- NOTE | 2019-09-27 13:21 | History & Physical-Hospitalist ---
History of Present Illness HPI/Chief Complaint Scribed by Luz Purdy Pt states that she just cannot breathe. She is experiencing extreme SOB and she questions about what she can do. I state that she could possibly have some fluid on that lung that we could do some tests to see. She questions if she would have to go to the hospital. She states that she is coughing quite a bit and she cant lay down at night. She states that she sits up. She states that she takes the Tramadol and her hydrocodone and she still gets the sharp pains through her breasts. She states that she is not running a fever at home. Her bowels have remained regular though she is taking the pain medications. I state that with this breast cancer it can affect things directly and indirectly. I state that I need to take a listen to her to see where we are. Pt states that she can't get anything done at her house. She states that she has another knot coming along and she found this when she was washing under her arms. This most recent lump doesn't hurt as bad as the other one but is still a bit painful. I state that her lungs sound wheezy and I don't know if it is fluid or not. I state that it might not be a bad idea for her to have a hospital stay while we solve these problems and if not then it will be a longer and more drawn out if not. Pt states that she can still do some cooking and she likes to do that. She states that she just can't sweep the floors and she cannot clean the bathroom. Pt states that when Dr. Mosher put her on O2 he recommended hospice to come in. I state that I need to check the hospital to see if there is an available bed. Pt will be admitted to [facility]. I state that what we are going to do is put her in for observation right now just to do some tests and I will likely shift her to inpatient once I know what is going on. I state that during her observation admission she would need to bring her own medications. She states she needs to go get her medications and she states she won't be able to get over there until 4:30 or 5:00 and I state that if she could get there sooner then I could run more tests. She will get her stuff done and be at [facility] as soon as possible Consult to Dr. Mosher and he spoke to hospice and she agreed for signing that up at discharge. Patient feels much better and breathing better and seems to have responded to the IV steroids. All home meds have been restarted Source: patient Exam Limitations: no limitations Date Seen 09/27/19 Time Seen by a Provider: 11:30 Attending Physician Nuzhat Desai DO PCP Nuzhat Desai DO Referring Physician Date of Admission Sep 26, 2019 at 14:51 Home Medications & Allergies Home Medications Reviewed patient Home Medication Reconciliation performed by pharmacy medication reconciliations utility locate technician and/or nursing. Patients Allergies have been reviewed. Allergies Allergies Coded Allergies Penicillins (Verified Allergy, Unknown, 09/26/19) Sulfa (Sulfonamide Antibiotics) (Verified Allergy, Unknown, 09/26/19) Past [id number]-[id number] Hx Past Med/Social Hx: Reviewed Nursing Past Med/Soc Hx, Reviewed and Corrections made Patient Social History Marrital Status: Employed/Student: retired Alcohol Use: Denies Use Recreational Drug Use: No Smoking Status: Never a Smoker Former Smoker, Quit: Aug 27, 1997 Physical Abuse Screen: No Sexual Abuse: No Recent Foreign Travel: No Contact w/other who traveled: No Recent Hopitalizations: No Recent Infectious Disease Expo: Yes Immunizations Up To Date Date of Pneumonia Vaccine: Sep 26, 2016 Seasonal Allergies Seasonal Allergies: No Past Medical History Respiratory: Asthma, Pneumonia Cardiac: High Cholesterol, Hypertension Neurological: Neuropathy : No Sexually Transmitted Disease: No HIV/AIDS: No Gastrointestinal: Gastroesophageal Reflux Musculoskeletal: Arthritis HEENT: Cataract Cancer: Breast What Type of Treatment Did You: Surgical Intervention Psychosocial: Anxiety, Depression History of Blood Disorders: No Adverse Reaction to Blood [place]: No Review of Systems Constitutional: see HPI Respiratory: dyspnea on exertion Psychiatric/Neurological: See HPI Physical Exam Physical Exam Vital Signs Vital Signs - First Documented 09/26/19 15:27 Temp 37.2 Pulse 71 Resp 20 B/P (MAP) 138/77 (97) Pulse Ox 98 O2 Delivery Nasal Cannula O2 Flow Rate 2.00 Capillary Refill : Less Than 3 Seconds Height, Weight, BMI Height: 5'3.00" Weight: 239lbs. 2.0oz. 108.614130zg; 42.69 BMI Method: General Appearance: WD/WN, Chronically ill, Mild Distress, Obese Eyes: Right Eye Normal Inspection, Right Eye PERRL HEENT: PERRL/EOMI, Normal ENT Inspection, Pharynx Normal, Moist Mucous Membranes Neck: Full Range of Motion, Normal Inspection, Non Tender Respiratory: Chest Non Tender, No Accessory Muscle Use, No Respiratory Distress, Crackles, Decreased Breath Sounds, Wheezing Cardiovascular: Regular Rate, Rhythm, No Edema, No Gallop, No JVD, No Murmur, Normal Peripheral Pulses Gastrointestinal: Normal Bowel Sounds, No Organomegaly, No Pulsatile Mass, Non Tender, Soft Back: Normal Inspection, No CVA Tenderness, No Vertebral Tenderness Extremity: Normal Capillary Refill, Normal Inspection, Normal Range of Motion, Non Tender, No Calf Tenderness, No Pedal Edema Neurologic/Psychiatric: Alert, Oriented x3, No Motor/Sensory Deficits, Normal Mood/Affect Skin: Normal Color, Warm/Dry Lymphatic: No Adenopathy Results Results/Procedures Labs Laboratory Tests 09/26/19 15:35 09/27/19 06:18 Patient resulted labs reviewed. Assessment/Plan Admission Diagnosis Assessment: Dyspnea with CT angiogram negative for pulmonary emboli Exacerbation of asthma responded to IV steroids Advanced breast cancer no chemotherapy or surgery planned hospice will be involved at discharge Neuropathy Left arm lymphedema Plan: O2 Nebulizer treatments IV steroids Home meds Admission Status: Observation Diagnosis/Problems Diagnosis/Problems (1) Exacerbation of asthma (2) Wheezing (3) Breast cancer (4) Acute and chronic respiratory failure with hypoxia (5) Dependence on supplemental oxygen (6) Neuropathy (7) Lymphedema of left arm (8) Dyspnea Clinical Quality Measures DVT/VTE Risk/Contraindication: Risk Factor Score Per Nursin RFS Level Per Nursing on Admit: 4+=Very High NUZHAT DESAI DO Sep 27, 2019 13:21
[2019-09-27] MEDS: ENOXAPARIN 40 MG/0.4 ML (LOVENOX) SYR SC SCH (15:17)
[2019-09-27] MEDS ORDERED: LOPERAMIDE 2 MG (IMODIUM) TABLET PO PRN (15:30)
[2019-09-27] MEDS ORDERED: FUROSEMIDE 40 MG (LASIX) TAB PO PRN (15:30)
[2019-09-27] MEDS ORDERED: guaiFENesin SYRUP 100 MG/5 ML 10 ML (ROBITUSSIN SF) PO PRN (15:30)
[2019-09-27] MEDS ORDERED: HYDROcodone/APAP 5 MG/325 MG (LORTAB) TAB PO PRN (15:30)
[2019-09-27] MEDS ORDERED: IBUPROFEN 600 MG (MOTRIN) TAB PO PRN (15:30)
[2019-09-27] MEDS ORDERED: CALCIUM CARBONATE 500 MG (TUMS) TAB.CHEW PO PRN (15:30)
[2019-09-27] MEDS ORDERED: ACETAMINOPHEN 500 MG TAB (TYLENOL) PO PRN (15:30)
[2019-09-27 16:00] VITALS: BP 156/75
[2019-09-27] MEDS: GABAPENTIN 100 MG (NEURONTIN) CAP PO SCH (19:59)
[2019-09-27 20:00] VITALS: BP 146/76
[2019-09-27] MEDS: CARVEDILOL 6.25 MG (COREG) TAB PO SCH (20:04)
[2019-09-27] MEDS ORDERED: NON-FORMULARY MEDICATION 1 EA EA (Melatonin/Lemon Balm Leaf Extr (Melatonin-Lemon Balm Tab PO SCH (21:00)
[2019-09-28 00:25] VITALS: BP 168/83
[2019-09-28] MEDS: RT-ALBUTEROL/IPRATROPIUM 3 ML (DUONEB) VIAL INH SCH ×2 (02:30→04:06)
[2019-09-28] MEDS: methylPREDNISolone 40 MG/ML (Solu-MEDROL) VIAL IV SCH ×2 (06:30→12:47)
[2019-09-28] MEDS: KCL 10 MEQ TAB (MICRO K) PO SCH (06:31)
[2019-09-28 07:01] LABS: BASOPHILS % (AUTO) 0 % (0-10); EOSINOPHILS % (AUTO) 0 % (0-10); HEMATOCRIT 37 % (35-52); HEMOGLOBIN 12.2 G/DL (11.5-16.0); LYMPHOCYTES # (AUTO) 0.5 X 10^3 (1.0-4.0); LYMPHOCYTES % (AUTO) 4 % (12-44); MEAN CORPUSCULAR HEMOGLOBIN 28 PG (25-34); MEAN CORPUSCULAR HGB CONC 33 G/DL (32-36); MEAN CORPUSCULAR VOLUME 85 FL (80-99); MEAN PLATELET VOLUME 10.4 FL (7.4-10.4); MONOCYTES # (AUTO) 0.6 X 10^3 (0.0-1.0); MONOCYTES % (AUTO) 5 % (0-12); NEUTROPHILS # (AUTO) 9.9 X 10^3 (1.8-7.8); NEUTROPHILS % (AUTO) 91 % (42-75); PLATELET COUNT 247 10^3/uL (130-400); RED CELL DISTRIBUTION WIDTH 13.5 % (10.0-14.5); WHITE BLOOD COUNT 10.9 10^3/uL (4.3-11.0)
[2019-09-28 07:34] LABS: ALANINE AMINOTRANSFERASE 20 U/L (0-55); ALKALINE PHOSPHATASE 79 U/L (40-136); BILIRUBIN,TOTAL 0.3 MG/DL (0.1-1.0); BUN/CREATININE RATIO 27; CALCIUM 9.1 MG/DL (8.5-10.1); CARBON DIOXIDE 23 MMOL/L (21-32); CHLORIDE 100 MMOL/L (98-107); CREATININE SERUM 0.75 MG/DL (0.60-1.30); GFR ESTIMATED > 60; GLUCOSE 153 MG/DL (70-105); POTASSIUM 4.1 MMOL/L (3.6-5.0); SODIUM 136 MMOL/L (135-145)
[2019-09-28 08:36] VITALS: BP 149/78
[2019-09-28] MEDS ORDERED: CRANBERRY EXTRACT PO SCH (09:00)
[2019-09-28] MEDS ORDERED: SERTRALINE 50 MG (ZOLOFT) TABLET PO SCH (09:00)
[2019-09-28] MEDS ORDERED: PANTOPRAZOLE 20 MG TABLET (PROTONIX) PO SCH (09:00)
[2019-09-28] MEDS ORDERED: CASCARA SAGRADA PO SCH (09:00)
[2019-09-28] MEDS ORDERED: HYDROCHLOROTHIAZIDE 25 MG (HCTZ) TAB PO SCH (09:00)
--- NOTE | 2019-09-28 09:24 | Pulmonary Progress Note ---
Subjective Time Seen by a Provider: 09:22 Sepsis Event Evaluation Height, Weight, BMI Height: 5'3.00" Weight: 239lbs. 2.0oz. 108.891146tm; 42.69 BMI Method: Focused Exam Lactate Level 09/26/19 15:35: Lactic Acid Level 1.14 Exam Exam Vital Signs Date Time Temp Pulse Resp B/P (MAP) Pulse Ox O2 Delivery O2 Flow Rate FiO2 09/28/19 08:36 36.0 69 18 149/78 (101) 98 Nasal Cannula 2.00 09/28/19 02:30 95 Nasal Cannula 2.00 09/28/19 00:25 37.0 70 21 168/83 (111) 96 Nasal Cannula 2.00 09/27/19 21:21 94 Nasal Cannula 2.00 09/27/19 20:05 Nasal Cannula 2.00 09/27/19 20:00 37.5 78 20 146/76 (99) 96 Nasal Cannula 2.00 09/27/19 16:00 36.9 66 18 156/75 (102) 97 Nasal Cannula 2.00 09/27/19 16:00 95 Nasal Cannula 2.00 09/27/19 12:30 85 09/27/19 12:00 36.4 70 18 152/67 (95) 95 Nasal Cannula 2.00 09/27/19 10:42 96 09/27/19 10:36 95 Nasal Cannula 2.00 I & O 09/28/19 07:00 Intake Total 1400 ml Output Total 1200 ml Balance 200 ml Height & Weight Height: 5'3.00" Weight: 239lbs. 2.0oz. 108.180321ef; 42.69 BMI Method: General Appearance: WD/WN, Chronically ill, Mild Distress, Obese HEENT: PERRL/EOMI, Normal ENT Inspection, Pharynx Normal, Moist Mucous Membranes Neck: Full Range of Motion, Normal Inspection, Non Tender Respiratory: Chest Non Tender, No Accessory Muscle Use, No Respiratory Distress, Crackles, Decreased Breath Sounds, Wheezing Cardiovascular: Regular Rate, Rhythm, No Edema, No Gallop, No JVD, No Murmur, Normal Peripheral Pulses Capillary Refill: Less Than 3 Seconds Extremity: Normal Capillary Refill, Normal Inspection, Normal Range of Motion, Non Tender, No Calf Tenderness, No Pedal Edema Neurologic/Psychiatric: Alert, Oriented x3, No Motor/Sensory Deficits, Normal Mood/Affect Skin: Normal Color, Warm/Dry Lymphatic: No Adenopathy Results Lab Laboratory Tests 09/26/19 15:35 09/27/19 06:18 09/28/19 06:40 Assessment/Plan Assessment/Plan Worsening SOB COPDAE -PT has home 02 -ABG reviewed -Solumedrol -02 -CTA is neg for acute process -SVNS Breast cancer -PT states chemo made her very sick and she does not want chemo. -PT follows with oncology -Plan is home with hospice at discharge Debility MAXINE HOWARD DO Sep 28, 2019 09:24
[2019-09-28] MEDS: DOCUSATE SODIUM 100 MG (COLACE) CAP PO SCH (10:54)
[2019-09-28] MEDS: CARVEDILOL 6.25 MG (COREG) TAB PO SCH (10:54)
[2019-09-28] MEDS: SENNOSIDES 8.6 MG (SENOKOT) TAB PO SCH (10:54)
[2019-09-28] MEDS: GABAPENTIN 100 MG (NEURONTIN) CAP PO SCH (10:55)
[2019-09-28] MEDS ORDERED: PRED10TA22 PO (12:08)
[2019-09-28] MEDS ORDERED: HYDR50TA3 PO (12:08)
--- NOTE | 2019-09-28 12:08 | Discharge Summary ---
Discharge Summary Hospital Course Was the Problem List Reviewed?: Yes Problems/Dx: (1) Exacerbation of asthma (2) Wheezing (3) Breast cancer (4) Acute and chronic respiratory failure with hypoxia (5) Dependence on supplemental oxygen (6) Neuropathy (7) Lymphedema of left arm (8) Dyspnea Hospital Course Date of Admission: Sep 26, 2019 at 14:51 Admission Diagnosis : Family Physician/Provider: Nuzhat Block DO Date of Discharge: 09/28/19 Discharge Diagnosis: Exacerbation of asthma with wheezing, O2 dependence, terminal breast cancer left, left arm lymphedema, HTN Hospital Course: Patient had a standard course of observation after admitted from my office directly for dyspnea worrisome for PE due to terminal left breast cancer and O2 dependence. CT angiogram and labs revealed no acute process and IV steroids improved status immensely. Dr Mosher was consulted and he enrolled the patient into [facility] as we had discussed in the past and she will see me in close follow up after completing a brief course of steroids. Labs and Pending Lab Test: Laboratory Tests 09/28/19 06:40: White Blood Count 10.9, Red Blood Count 4.35, Hemoglobin 12.2, Hematocrit 37, Mean Corpuscular Volume 85, Mean Corpuscular Hemoglobin 28, Mean Corpuscular Hemoglobin Concent 33, Red Cell Distribution Width 13.5, Platelet Count 247, Mean Platelet Volume 10.4, Neutrophils (%) (Auto) 91H, Lymphocytes (%) (Auto) 4L , Monocytes (%) (Auto) 5, Eosinophils (%) (Auto) 0, Basophils (%) (Auto) 0, Neutrophils # (Auto) 9.9H, Lymphocytes # (Auto) 0.5L, Monocytes # (Auto) 0.6, Eosinophils # (Auto) 0.0, Basophils # (Auto) 0.0, Sodium Level 136, Potassium L evel 4.1, Chloride Level 100, Carbon Dioxide Level 23, Anion Gap 13, Blood Urea Nitrogen 20H, Creatinine 0.75, Estimat Glomerular Filtration Rate > 60, BUN/Creatinine Ratio 27, Glucose Level 153H, Calcium Level 9.1, Corrected Calcium 9.1, Total Bilirubin 0.3, Aspartate Amino Transf (AST/SGOT) 19, Alanine Aminotransferase (ALT/SGPT) 20, Alkaline Phosphatase 79, Total Protein 7.0, Albumin 4.0 Microbiology 09/26/19 Blood Culture - Preliminary, Resulted No growth Home Meds Active Prednisone 10 Mg Tab.ds.pk 10 Mg PO DAILY Take 4 tabs(40mg)daily,decrease by 1 tab(10MG)daily. Hydrochlorothiazide 50 Mg Tablet 25 Mg PO DAILY TAKES 1/2 (50MG) TABLET Reported Lasix (Furosemide) 40 Mg Tablet 40 Mg PO DAILY PRN Melatonin-Lemon [place] Tablet (Melatonin/Lemon [place] Extr) 1 Each Tablet 1 Tab PO HS Cranberry (Cranberry Extract) 500 Mg Tablet 1 Tab PO DAILY Aspercreme (Lidocaine HCl) 76.5 Gm Cream..g. TP QID PRN Tylenol Extra Strength (Acetaminophen) 500 Mg Tablet 500-1,000 Mg PO Q4H PRN Rolaids Chewable Tablet (Calcium Carb/Magnesium Hydrox) 1 Each Tab.chew 1 Tab.chew PO TID PRN Loperamide (Loperamide HCl) 2 Mg Capsule 2 Mg PO UD PRN [[place]] 1 Cap PO DAILY Robitussin (Dextromethorphan HBr) 15 Mg Capsule 15 Mg PO Q8H PRN Symbicort 160-4.5 Mcg Inhaler (Budesonide/Formoterol Fumarate) 10.2 Gm Hfa.aer.ad 2 Puff IH BID Proair Hfa (Albuterol Sulfate) 1 Puff Puff 2 Puff IH Q4H PRN 1 PUFF = 90 MCG Tramadol HCl 50 Mg Tablet 50 Mg PO TID PRN Coreg (Carvedilol) 6.25 Mg Tablet 6.25 Mg PO BID Sertraline HCl 50 Mg Tablet 25 Mg PO DAILY TAKES 1/2 (50MG) TABLET Ibu (Ibuprofen) 600 Mg Tablet 600 Mg PO Q6H PRN Gabapentin 100 Mg Capsule 100 Mg PO TID Omeprazole 20 Mg Capsule. 20 Mg PO BID Dok (Docusate Sodium) 100 Mg Capsule 100 Mg PO BID Hydrocodone-Acetamin 5-325 mg (Hydrocodone/Acetaminophen) 1 Each Tablet 1 Tab PO BID PRN Assessment/Pt Instructions Dr Bolck this Sunday Discharge Planning: <30 minutes discharge planning Discharge Instructions Discharge Diet: No Restrictions Activity as Tolerated: Yes Discharge Physical Examination Vital Signs Vital Signs Date Time Temp Pulse Resp B/P (MAP) Pulse Ox O2 Delivery O2 Flow Rate FiO2 09/28/19 08:36 36.0 69 18 149/78 (101) 98 Nasal Cannula 2.00 General Appearance: No Apparent Distress, WD/WN Respiratory: Chest Non Tender, Lungs Clear, Normal Breath Sounds, No Accessory Muscle Use, No Respiratory Distress Cardiovascular: Regular Rate, Rhythm, No Edema, No Gallop, No JVD, No Murmur, Normal Peripheral Pulses Neurologic/Psychiatric: Alert, Oriented x3, No Motor/Sensory Deficits, Normal Mood/Affect Allergies: Coded Allergies: Penicillins (Verified Allergy, Unknown, 09/26/19) Sulfa (Sulfonamide Antibiotics) (Verified Allergy, Unknown, 09/26/19) Discharge Summary Date of Admission Sep 26, 2019 at 14:51 Date of Discharge Discharge Date: Sep 28, 2019 Admission Diagnosis Assessment: Dyspnea with CT angiogram negative for pulmonary emboli Exacerbation of asthma responded to IV steroids Advanced breast cancer no chemotherapy or surgery planned hospice will be involved at discharge Neuropathy Left arm lymphedema Plan: O2 Nebulizer treatments IV steroids Home meds Discharge Diagnosis (1) Exacerbation of asthma (2) Wheezing (3) Breast cancer (4) Acute and chronic respiratory failure with hypoxia (5) Dependence on supplemental oxygen (6) Neuropathy (7) Lymphedema of left arm (8) Dyspnea Clinical Quality Measures DVT/VTE Risk/Contraindication: Risk Factor Score Per Nursin RFS Level Per Nursing on Admit: 4+=Very High NUZHAT BLOCK DO Sep 28, 2019 12:08
== END 2019-09-28 13:08 | disposition home or self-care (01) ==
LOC: 4TH 14:51
PROVIDERS: ADMIT Internal Medicine; ATTEND Internal Medicine
DX: J45.901 Unspecified asthma with (acute) exacerbation (principal); J96.21 Acute and chronic respiratory failure with hypoxia; G62.9 Polyneuropathy, unspecified; I89.0 Lymphedema, not elsewhere classified; I10 Essential (primary) hypertension; J43.9 Emphysema, unspecified; K21.9 Gastro-esophageal reflux disease without esophagitis; M19.90 Unspecified osteoarthritis, unspecified site; F32.9 Major depressive disorder, single episode, unspecified; F41.9 Anxiety disorder, unspecified; Z85.3 Personal history of malignant neoplasm of breast; Z99.81 Dependence on supplemental oxygen; Z88.0 Allergy status to penicillin; Z88.2 Allergy status to sulfonamides; Z79.899 Other long term (current) drug therapy; Z79.891 Long term (current) use of opiate analgesic
CPT/HCPCS: 36415; 36600; 71046; 71275; 80053; 82805; 83605; 83880; 84484; 85025; 85610; 87040; 94640; 94760; 99211; G0378

== ENCOUNTER 2019-12-14 14:21 | Emergency (ER) | payer MEDICARE ==
[~2019-12-14] VITALS: Ht 160 cm; Wt 108.8 kg
[~2019-12-14 14:21] MED LIST changes: +ACET-2267 PO; +ACHD5005 PO; +BUDE10.2 IH; +CALC-921 PO; +CARV6.25 PO; +CASCARA SAGRADA PO; -CATHETER FLUSH 10 ML SYR IV PRN; +CRAN500T2 PO; +DCS100C PO; +DEXT15CA28 PO; +FURO-124 PO; +GABA-486 PO; +HYDR50TA3 PO; +IBUP-844 PO; +LIDO76.5 TP; +LOPE2CAP PO; +MELA1TAB35 PO; +OMEP20CA18 PO; +PRED10TA22 PO; -REGADENOSON 0.4 MG/5 ML SYR (LEXISCAN) IV ONE; +RT-ALBUINH IH; +SERT50TA9 PO; +TRM50T PO
[2019-12-14] MEDS ORDERED: morphine INJ 10 MG/ML 1ML (SYR OR VIAL) IM STA (14:26)
--- OUTSIDE RECORDS SUMMARY | 2019-12-14 14:26 | XMS REPORT | Continuity of Care Document ---
Author Organization Unknown Address Unknown Phone Unavailable Allergies Active Description Code Type Severity Reaction Onset Reported/Identified Relationship to Patient Clinical Status Yes No Allergy Information Available [id number] Drug Allergy Unknown N/A 019 Yes Penicillins [id number] Drug Aller gy Unknown N/A 09/26/2019 Yes Sulfa (Sulfonamide Antibiotics) [id number] Drug Allergy Unknown N/A 020 Medications There is no data. 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 9 LIVER DISEASE, UNSPECIFIED 05/16/2019 NELLY HAYES MD Ot N63. 20 UNSPECIFIED LUMP IN THE LEFT BREAST, UNS 05/16/2019 NELLY HAYES MD Ot N85. 8 OTHER SPECIFIED NONINFLAMMATORY DISORDER 05/16/2019 NELLY HAYES MD, Ot R59. 0 LOCALIZED ENLARGED LYMPH NODES 05/23/2019 NELLY HAYES MD, Ot C50.912 MALIGNANT NEOPLASM OF UNSPECIFIED SITE O 05/23/2019 NELLY HAYES MD, Ot Z98.890 OTHER SPECIFIED POSTPROCEDURAL STATES 05/23/2019 NELLY HAYES MD, Ot C50.912 MALIGNANT NEOPLASM OF UNSPECIFIED SITE O 05/23/2019 NELLY HAYES MD Ot R22. 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 9 LIVER DISEASE, UNSPECIFIED 05/23/2019 NELLY HAYES MD, Ot N63. 20 UNSPECIFIED LUMP IN THE LEFT BREAST, UNS 05/23/2019 NELLY HAYES MD Ot N85. 8 OTHER SPECIFIED NONINFLAMMATORY DISORDER 05/23/2019 NELLY HAYES MD, Ot R59. 0 LOCALIZED ENLARGED LYMPH NODES 05/23/2019 ERIKA VARGAS DO Ot N63. 32 UNSPECIFIED LUMP IN AXILLARY TAIL OF THE 05/23/2019 NELLY HAYES MD, Ot C50.912 MALIGNANT NEOPLASM OF UNSPECIFIED SITE O 05/23/2019 NELLY HAYES MD, Ot Z98.890 OTHER SPECIFIED POSTPROCEDURAL STATES 05/23/2019 NELLY HAYES MD, Ot C50.912 MALIGNANT NEOPLASM OF UNSPECIFIED SITE O 05/23/2019 NELLY HAYES MD Ot R22. 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 9 LIVER DISEASE, UNSPECIFIED 05/23/2019 NELLY HAYES MD, Ot N63. 20 UNSPECIFIED LUMP IN THE LEFT BREAST, UNS 05/23/2019 NELLY HAYES MD Ot N85. 8 OTHER SPECIFIED NONINFLAMMATORY DISORDER 05/23/2019 NELLY HAYES MD Ot R59. 0 LOCALIZED ENLARGED LYMPH NODES 05/23/2019 SAM DOERIKA Ot N63. 20 UNSPECIFIED LUMP IN THE LEFT BREAST, UNS 05/23/2019 SAM DOERIKA Ot N63. 32 UNSPECIFIED LUMP IN AXILLARY TAIL OF THE 05/23/2019 NELLY HAYES MD, Ot C50.912 MALIGNANT NEOPLASM OF UNSPECIFIED SITE O 05/23/2019 NELLY HAYES MD Ot Z98.890 OTHER SPECIFIED POSTPROCEDURAL STATES 05/23/2019 VARGAS DOERIKA Ot N63. 20 UNSPECIFIED LUMP IN THE LEFT BREAST, UNS 05/23/2019 SAM DOERIKA Ot N63. 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 9 LIVER DISEASE, UNSPECIFIED 06/10/2019 NELLY HAYES MD Ot N63. 20 UNSPECIFIED LUMP IN THE LEFT BREAST, UNS 06/10/2019 NELLY HAYES MD Ot N85. 8 OTHER SPECIFIED NONINFLAMMATORY DISORDER 06/10/2019 NELLY HAYES MD Ot R59. 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 32 UNSPECIFIED LUMP IN AXILLARY TAIL OF THE 06/10/2019 ERIKA VARGAS DO Ot N63. 32 UNSPECIFIED LUMP IN AXILLARY TAIL OF THE 06/25/2019 MAURICIO NORTON [facility], ALI FACP CCDS Ot R09.89 OTH SYMPTOMS AND SIGNS INVOLVING THE CIR 07/01/2019 MAURICIO NORTON FAC, ALI FACP CCDS Ot R09.89 OTH SYMPTOMS AND SIGNS INVOLVING THE CIR 07/01/2019 MAURICIO NORTON [facility], ALI FACP CCDS Ot R09.89 OTH SYMPTOMS AND SIGNS INVOLVING THE CIR 07/02/2019 ERIKA VARGAS DO Ot N63. 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 07/30/2019 NELLY HAYES MD Ot C50.912 MALIGNANT NEOPLASM OF UNSPECIFIED SITE O 07/30/2019 NELLY HAYES MD Ot Z98.890 OTHER SPECIFIED POSTPROCEDURAL STATES 07/30/2019 MAURICIO NORTON FACC, ALI FACP CCDS Ot I10 ESSENTIAL (PRIMARY) HYPERTENSION 07/30/2019 MAURICIO NORTON FACC, ALI FACP CCDS Ot I25.10 ATHSCL HEART DISEASE OF [place] CORONARY 07/30/2019 MAURICIO NORTON FACC, ALI FACP CCDS Ot J44.9 CHRONIC OBSTRUCTIVE PULMONARY DISEASE, U 08/04/2019 NELLY HAYES MD Ot C50.912 MALIGNANT NEOPLASM OF UNSPECIFIED SITE O 08/04/2019 NELLY HAYES MD Ot Z98.890 OTHER SPECIFIED POSTPROCEDURAL STATES 08/06/2019 NELLY HAYES MD Ot C50.912 MALIGNANT NEOPLASM OF UNSPECIFIED SITE O 08/06/2019 NELLY HAYES MD Ot Z98.890 OTHER SPECIFIED POSTPROCEDURAL STATES 09/19/2019 BONNIE PEREZ 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 09/19/2019 KELLEY PEREZID 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 09/23/2019 CANDIS APODACA APRN Ot E66.1 DRUG-INDUCED OBESITY 09/23/2019 CANDIS APODACA APRN Ot J43.9 EMPHYSEMA, UNSPECIFIED 09/23/2019 CANDIS APODACA APRN Ot R09.02 HYPOXEMIA 09/26/2019 NELLY HAYES MD Ot C50.912 MALIGNANT NEOPLASM OF UNSPECIFIED SITE O 09/26/2019 NELLY HAYES MD Ot Z98.890 OTHER SPECIFIED POSTPROCEDURAL STATES 09/28/2019 DESAI DO, GORDY Ot F32.9 MAJOR DEPRESSIVE DISORDER, SINGLE EPISOD 09/28/2019 DESAI DO, GORDY Ot F41.9 ANXIETY DISORDER, UNSPECIFIED 09/28/2019 DESAI DO, GORDY Ot G62.9 POLYNEUROPATHY, UNSPECIFIED 09/28/2019 DESAI DO, GORDY Ot I10 ESSENTIAL (PRIMARY) HYPERTENSION 09/28/2019 DESAI DO, GORDY Ot I89.0 LYMPHEDEMA, NOT ELSEWHERE CLASSIFIED 09/28/2019 DESAI DO, GORDY Ot J43.9 EMPHYSEMA, UNSPECIFIED 09/28/2019 DESAI DO, GORDY Ot J45.90 1 UNSPECIFIED ASTHMA WITH (ACUTE) EXACERBA 09/28/2019 DESAI DO, GORDY Ot J96.21 ACUTE AND CHRONIC RESPIRATORY FAILURE [place] 09/28/2019 DESAI DO, GORDY Ot K21.9 GASTRO-ESOPHAGEAL REFLUX DISEASE WITHOUT 09/28/2019 DESAI DO, GORDY Ot M19.90 UNSPECIFIED OSTEOARTHRITIS, UNSPECIFIED 09/28/2019 DESAI DO, GORDY Ot Z79.89 1 MCC (CURRENT) USE OF OPIATE ANALGE 09/28/2019 DESAI DO, GORDY Ot Z79.89 9 OTHER FORESTER AIDE (CURRENT) DRUG THERAPY 09/28/2019 DESAI DO, GORDY Ot Z85.3 PERSONAL HISTORY OF MALIGNANT NEOPLASM O 09/28/2019 DESAI DO, GORDY Ot Z88.0 ALLERGY STATUS TO PENICILLIN 09/28/2019 DESAI DO, GORDY Ot Z88.2 ALLERGY STATUS TO SULFONAMIDES STATUS 09/28/2019 DESAI DO, GORDY Ot Z99.81 DEPENDENCE ON SUPPLEMENTAL OXYGEN 09/28/2019 LLOYD DO, GORDY Ot F32.9 MAJOR DEPRESSIVE DISORDER, SINGLE EPISOD 09/28/2019 DESAI DO, GORDY Ot F41.9 ANXIETY DISORDER, UNSPECIFIED 09/28/2019 DESAI DO, GORDY Ot G62.9 POLYNEUROPATHY, UNSPECIFIED 09/28/2019 DESAI DO, GORDY Ot I10 ESSENTIAL (PRIMARY) HYPERTENSION 09/28/2019 DESAI DO, GORDY Ot I89.0 LYMPHEDEMA, NOT ELSEWHERE CLASSIFIED 09/28/2019 DESAI DO, GORDY Ot J43.9 EMPHYSEMA, UNSPECIFIED 09/28/2019 DESAI DO, GORDY Ot J45.90 1 UNSPECIFIED ASTHMA WITH (ACUTE) EXACERBA 09/28/2019 DESAIMADHU DORADO GORDY Ot J96.21 ACUTE AND CHRONIC RESPIRATORY FAILURE [place] 09/28/2019 LLOYD DORADO GORDY Ot K21.9 GASTRO-ESOPHAGEAL REFLUX DISEASE WITHOUT 09/28/2019 DESAI DO GORDY Ot M19.90 UNSPECIFIED OSTEOARTHRITIS, UNSPECIFIED 09/28/2019 DESAI DO GORDY Ot Z79.89 1 FORESTER AIDE (CURRENT) USE OF OPIATE ANALGE 09/28/2019 DESAI DO GORDY Ot Z79.89 9 OTHER MCC (CURRENT) DRUG THERAPY 09/28/2019 DESAI DO GORDY Ot Z85.3 PERSONAL HISTORY OF MALIGNANT NEOPLASM O 09/28/2019 GORDY DESAI DO Ot Z88.0 ALLERGY STATUS TO PENICILLIN 09/28/2019 GORDY DESAI DO Ot Z88.2 ALLERGY STATUS TO SULFONAMIDES STATUS 09/28/2019 GORDY DESAI DO Ot Z99.81 DEPENDENCE ON SUPPLEMENTAL OXYGEN 09/29/2019 NELLY HAYES MD Ot C50.912 MALIGNANT NEOPLASM OF UNSPECIFIED SITE O 09/29/2019 NELLY HAYES MD Ot R22. 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 9 LIVER DISEASE, UNSPECIFIED 09/29/2019 NELLY HAYES MD Ot N63. 20 UNSPECIFIED LUMP IN THE LEFT BREAST, UNS 09/29/2019 NELLY HAYES MD Ot N85. 8 OTHER SPECIFIED NONINFLAMMATORY DISORDER 09/29/2019 NELLY HAYES MD, Ot R59. 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 32 UNSPECIFIED LUMP IN AXILLARY TAIL OF THE 09/29/2019 CANDIS APODACA FIRE LOOKOUT Ot E66.01 MORBID (SEVERE) OBESITY DUE TO EXCESS CA 09/29/2019 CANDIS APODACA FIRE LOOKOUT Ot I89.0 LYMPHEDEMA, NOT ELSEWHERE CLASSIFIED 09/29/2019 CANDIS APODACA FIRE LOOKOUT Ot R06.00 DYSPNEA, UNSPECIFIED 09/29/2019 MAURICIO NORTON FAC, ALI FACP CCDS Ot I10 ESSENTIAL (PRIMARY) HYPERTENSION 09/29/2019 MAURICIO NORTON FAC, ALI FACP CCDS Ot I25.10 ATHSCL HEART DISEASE OF [place] CORONARY 09/29/2019 [facility] J[facility].9 CHRONIC OBSTRUCTIVE PULMONARY DISEASE, U 09/29/2019 ABIGAIL NORTON, NELLY Ot C50.912 MALIGNANT NEOPLASM OF UNSPECIFIED SITE O 09/29/2019 ABIGAIL NORTON, NELLY Ot Z98.890 OTHER SPECIFIED POSTPROCEDURAL STATES 09/29/2019 CANDIS APODACA APRN Ot E66.1 DRUG-INDUCED OBESITY 09/29/2019 CANDIS APODACA APRN Ot J43.9 EMPHYSEMA, UNSPECIFIED 09/29/2019 CANDIS APODACA FIRE LOOKOUT Ot R09.02 HYPOXEMIA 09/29/2019 BONNIE PEREZ 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 09/29/2019 BONNIE PEREZ 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 10/02/2019 CANDIS APODACA FIRE LOOKOUT Ot E66.1 DRUG-INDUCED OBESITY 10/02/2019 CANDIS APODACA FIRE LOOKOUT Ot J43.9 EMPHYSEMA, UNSPECIFIED 10/02/2019 CANDIS APODACA FIRE LOOKOUT Ot R09.02 HYPOXEMIA 11/25/2019 CANDIS APODACA FIRE LOOKOUT Ot E66.1 DRUG-INDUCED OBESITY 11/25/2019 CANDIS APODACA FIRE LOOKOUT Ot J43.9 EMPHYSEMA, UNSPECIFIED 11/25/2019 CANDIS APODACA FIRE LOOKOUT Ot R09.02 HYPOXEMIA 11/26/2019 CANDIS APODACA FIRE LOOKOUT Ot E66.1 DRUG-INDUCED OBESITY 11/26/2019 CANDIS APODACA FIRE LOOKOUT Ot J43.9 EMPHYSEMA, UNSPECIFIED 11/26/2019 CANDIS APODACA FIRE LOOKOUT Ot R09.02 HYPOXEMIA Procedures There is no data. Results Test Result Range Complete blood count (CBC) with automate d white blood cell (WBC) differential - 09/26/19 15:35 Blood leukocytes automated count (number/volume) 5.5 10*3/uL 4.3-11.0 Blood erythrocytes automated count (number/volume) 4.37 10*6/uL 4.35-5.85 Venous blood hemoglobin measurement (mass/volume) 12.3 g/dL 11.5-16.0 Blood hematocrit (volume fraction) 38 % 35-52 Automated erythrocyte mean corpuscular volume 86 [ foz_us] 80-99 Automated erythrocyte mean corpuscular h emoglobin (mass per erythrocyte) 28 pg 25-34 Automated erythrocyte mean corpuscular h emoglobin concentration measurement (mass/volume) 33 g/dL 32-36 Automated erythrocyte distribution width ratio 13. 5 % 10.0- 14.5 Automated blood platelet count (count/volume) 223 10*3/uL 130-400 Automated blood platelet mean volume measurement 9.9 [foz_us] 7.4-10.4 Automated blood neutrophils/100 leukocytes 78 % 42-75 Automated blood lymphocytes/100 leukocytes 10 % 12-44 Blood monocytes/100 leukocytes 9 % 0-12 Automated blood eosinophils/100 leukocytes 2 % 0-10 Automated blood basophils/100 leukocytes 1 % 0-10 Blood neutrophils automated count (number/volume) 4.3 10*3 1.8-7.8 Blood lymphocytes automated count (number/volume) 0.5 10*3 1.0-4.0 Blood monocytes automated count (number/volume) 0. 5 10*3 0.0-1.0 Automated eosinophil count 0.1 10*3/uL 0 .0-0.3 Automated blood basophil count (count/volume) 0.0 10*3/uL 0.0-0.1 Blood lactic acid measurement (moles/vol ume) - 09/26/19 15:35 Blood lactic acid measurement (moles/volume) 1.14 mmol/L 0.50-2.00 PT panel in platelet poor plasma by coag ulation assay - 09/26/19 15:35 Prothrombin time (PT) in platelet poor plasma by coagu lation assay 13.5 s 12.2-14.7 INR in platelet poor plasma or blood by coagulation as say 1.0 0.8-1.4 Comprehensive metabolic panel - 09/26/19 15:35 Serum or plasma sodium measurement (moles/volume) 141 mmol/L 135-145 Serum or plasma potassium measurement (moles/volume) 3.5 mmol/L 3.6-5.0 Serum or plasma chloride measurement (moles/volume) 104 mmol/L 98-107 Carbon dioxide 27 mmol/L 21-32 Serum or plasma anion gap determination (moles/volume) 10 mmol/L 5-14 Serum or plasma urea nitrogen measurement (mass/volume ) 20 mg/dL 7-18 Serum or plasma creatinine measurement (mass/volume) 0.74 mg/dL 0.60-1.30 Serum or plasma urea nitrogen/creatinine mass ratio 27 NRG Serum or plasma creatinine measurement w ith calculation of estimated glomerular filtration rate > NRG Serum or plasma glucose measurement (mass/volume) 114 mg/dL 70-105 Serum or plasma calcium measurement (mass/volume) 9.1 mg/dL 8.5-10.1 Serum or plasma total bilirubin measurement (mass/volu me) 0.3 mg/dL 0.1-1.0 Serum or plasma alkaline phosphatase herb surement (enzymatic activity/volume) 93 U/L 40-136 Serum or plasma aspartate aminotransfera se measurement (enzymatic activity/volume) 25 U/L 5-34 Serum or plasma alanine aminotransferase measurement (enzymatic activity/volume) 18 U/L 0-55 Serum or plasma protein measurement (mass/volume) 6.8 g/dL 6.4-8.2 Serum or plasma albumin measurement (mass/volume) 3.9 g/dL 3.2-4.5 CALCIUM CORRECTED 9.2 mg/dL 8.5-10.1 Serum or plasma troponin i.cardiac measu rement (mass/volume) - 09/26/19 15:35 Serum or plasma troponin i.cardiac measurement (mass/v olume) < ng/mL <0.028 Serum or plasma lithium measurement (mol es/volume) - 09/26/19 15:35 BNP PT 74.6 pg/mL <100.0 Bacterial blood culture - 09/26/19 15:35 Bacterial blood culture NG NRG Bacterial blood culture - 09/26/19 15:40 Bacterial blood culture NG NRG Arterial blood gas measurement - 0 15:47 Blood pCO2 45 mm[Hg] 35-45 Blood pO2 107 mm[Hg] 79-93 Arterial blood bicarbonate measurement (moles/volume) 29 mmol/L 23-27 Arterial blood base excess by calculation 5.2 mmol /L -2.5-2.5 Arterial blood oxygen saturation measurement 98 % 94-100 * Inhaled oxygen flow rate 2% NRG Arterial blood pH measurement with patient temperature correction 7.43 7.37-7.43 Arterial blood carbon dioxide, total measurement (mole s/volume) 30.7 mmol/L 21.0-31.0 Body site RRAD NRG Assessment of wrist artery patency prior to arterial p uncture POS NRG Setting of ventilation mode NO NR G Measurement of body temperature 37.2 NRG Complete blood count (CBC) with automate d white blood cell (WBC) differential - 09/27/19 06:18 Blood leukocytes automated count (number/volume) 6.0 10*3/uL 4.3-11.0 Blood erythrocytes automated count (number/volume) 4.78 10*6/uL 4.35-5.85 Venous blood hemoglobin measurement (mass/volume) 13.4 g/dL 11.5-16.0 Blood hematocrit (volume fraction) 41 % 35-52 Automated erythrocyte mean corpuscular volume 86 [ foz_us] 80-99 Automated erythrocyte mean corpuscular h emoglobin (mass per erythrocyte) 28 pg 25-34 Automated erythrocyte mean corpuscular h emoglobin concentration measurement (mass/volume) 33 g/dL 32-36 Automated erythrocyte distribution width ratio 13. 6 % 10.0- 14.5 Automated blood platelet count (count/volume) 239 10*3/uL 130-400 Automated blood platelet mean volume measurement 10.3 [foz_us] 7.4-10.4 Automated blood neutrophils/100 leukocytes 93 % 42-75 Automated blood lymphocytes/100 leukocytes 5 % 12-44 Blood monocytes/100 leukocytes 2 % 0-12 Automated blood eosinophils/100 leukocytes 0 % 0-10 Automated blood basophils/100 leukocytes 0 % 0-10 Blood neutrophils automated count (number/volume) 5.6 10*3 1.8-7.8 Blood lymphocytes automated count (number/volume) 0.3 10*3 1.0-4.0 Blood monocytes automated count (number/volume) 0. 1 10*3 0.0-1.0 Automated eosinophil count 0.0 10*3/uL 0 .0-0.3 Automated blood basophil count (count/volume) 0.0 10*3/uL 0.0-0.1 Comprehensive metabolic panel - 09/27/19 06:18 Serum or plasma sodium measurement (moles/volume) 140 mmol/L 135-145 Serum or plasma potassium measurement (moles/volume) 4.3 mmol/L 3.6-5.0 Serum or plasma chloride measurement (moles/volume) 104 mmol/L 98-107 Carbon dioxide 20 mmol/L 21-32 Serum or plasma anion gap determination (moles/volume) 16 mmol/L 5-14 Serum or plasma urea nitrogen measurement (mass/volume ) 18 mg/dL 7-18 Serum or plasma creatinine measurement (mass/volume) 0.81 mg/dL 0.60-1.30 Serum or plasma urea nitrogen/creatinine mass ratio 22 NRG Serum or plasma creatinine measurement w ith calculation of estimated glomerular filtration rate > NRG Serum or plasma glucose measurement (mass/volume) 150 mg/dL 70-105 Serum or plasma calcium measurement (mass/volume) 9.4 mg/dL 8.5-10.1 Serum or plasma total bilirubin measurement (mass/volu me) 0.3 mg/dL 0.1-1.0 Serum or plasma alkaline phosphatase herb surement (enzymatic activity/volume) 87 U/L 40-136 Serum or plasma aspartate aminotransfera se measurement (enzymatic activity/volume) 21 U/L 5-34 Serum or plasma alanine aminotransferase measurement (enzymatic activity/volume) 18 U/L 0-55 Serum or plasma protein measurement (mass/volume) 7.2 g/dL 6.4-8.2 Serum or plasma albumin measurement (mass/volume) 4.1 g/dL 3.2-4.5 CALCIUM CORRECTED 9.3 mg/dL 8.5-10.1 Complete blood count (CBC) with automate d white blood cell (WBC) differential - 09/28/19 06:40 Blood leukocytes automated count (number/volume) 10.9 10*3/uL 4.3-11.0 Blood erythrocytes automated count (number/volume) 4.35 10*6/uL 4.35-5.85 Venous blood hemoglobin measurement (mass/volume) 12.2 g/dL 11.5-16.0 Blood hematocrit (volume fraction) 37 % 35-52 Automated erythrocyte mean corpuscular volume 85 [ foz_us] 80-99 Automated erythrocyte mean corpuscular h emoglobin (mass per erythrocyte) 28 pg 25-34 Automated erythrocyte mean corpuscular h emoglobin concentration measurement (mass/volume) 33 g/dL 32-36 Automated erythrocyte distribution width ratio 13. 5 % 10.0- 14.5 Automated blood platelet count (count/volume) 247 10*3/uL 130-400 Automated blood platelet mean volume measurement 10.4 [foz_us] 7.4-10.4 Automated blood neutrophils/100 leukocytes 91 % 42-75 Automated blood lymphocytes/100 leukocytes 4 % 12-44 Blood monocytes/100 leukocytes 5 % 0-12 Automated blood eosinophils/100 leukocytes 0 % 0-10 Automated blood basophils/100 leukocytes 0 % 0-10 Blood neutrophils automated count (number/volume) 9.9 10*3 1.8-7.8 Blood lymphocytes automated count (number/volume) 0.5 10*3 1.0-4.0 Blood monocytes automated count (number/volume) 0. 6 10*3 0.0-1.0 Automated eosinophil count 0.0 10*3/uL 0 .0-0.3 Automated blood basophil count (count/volume) 0.0 10*3/uL 0.0-0.1 Comprehensive metabolic panel - 09/28/19 06:40 Serum or plasma sodium measurement (moles/volume) 136 mmol/L 135-145 Serum or plasma potassium measurement (moles/volume) 4.1 mmol/L 3.6-5.0 Serum or plasma chloride measurement (moles/volume) 100 mmol/L 98-107 Carbon dioxide 23 mmol/L 21-32 Serum or plasma anion gap determination (moles/volume) 13 mmol/L 5-14 Serum or plasma urea nitrogen measurement (mass/volume ) 20 mg/dL 7-18 Serum or plasma creatinine measurement (mass/volume) 0.75 mg/dL 0.60-1.30 Serum or plasma urea nitrogen/creatinine mass ratio 27 NRG Serum or plasma creatinine measurement w ith calculation of estimated glomerular filtration rate > NRG Serum or plasma glucose measurement (mass/volume) 153 mg/dL 70-105 Serum or plasma calcium measurement (mass/volume) 9.1 mg/dL 8.5-10.1 Serum or plasma total bilirubin measurement (mass/volu me) 0.3 mg/dL 0.1-1.0 Serum or plasma alkaline phosphatase herb surement (enzymatic activity/volume) 79 U/L 40-136 Serum or plasma aspartate aminotransfera se measurement (enzymatic activity/volume) 19 U/L 5-34 Serum or plasma alanine aminotransferase measurement (enzymatic activity/volume) 20 U/L 0-55 Serum or plasma protein measurement (mass/volume) 7.0 g/dL 6.4-8.2 Serum or plasma albumin measurement (mass/volume) 4.0 g/dL 3.2-4.5 CALCIUM CORRECTED 9.1 mg/dL 8.5-10.1 Encounters ACCT No. Visit Date/Time Discharge Status Pt. Type Provider Facility Loc./Unit Complaint [id number] 09/29/2019 13:23:11 09/29/2019 23:59:5 9 CLS Outpatient BONNIE PEREZ [id number] 08/27/2019 12:29:00 00:01:00 DIS Outpatient CANDIS APODACA APRN [facility] PULM COPD [id number] 09/26/2019 14:51:00 13:08:00 DIS Outpatient GORDY DESAI DO [facility] 4TH SOA [id number] 07/31/2019 00:11:00 23:59:59 CLS Preadmit NELLY HAYES MD [facility] ONC [id number] 07/17/2019 12:42:00 00:01:00 DIS Outpatient NELLY HAYES MD [facility] ONC [id number] 07/01/2019 07:43:00 23:59:59 CLS Outpatient MAURICIO NORTON FACC, BARTOLO MATTHEWS CC DS [facility] CARD CAD [id number] 06/09/2019 15:56:00 23:59:59 CLS Outpatient CANDIS APODACA APRN [facility] RT LYMPHEDEMA,MORB ID OBESITY,DYSPNEA [id number] 05/27/2019 10:09:00 23:59:59 CLS Outpatient NELLY HAYES MD [facility] RAD BREAST CANCER [id number] 05/23/2019 10:44:00 23:59:59 CLS Outpatient ERIKA VARGAS DO [facility] RAD AXILLARY MASS [id number] 05/14/2019 10:50:00 23:59:59 CLS Outpatient NELLY HAYES MD [facility] RAD BREAST CANCER [id number] 05/05/2019 10:59:00 23:59:59 CLS Outpatient NELLY HAYES MD [facility] RAD LUMP IN ARMPIT
--- NOTE | 2019-12-14 14:31 | ED Lower Extremity ---
General Chief Complaint: Trauma-Non Activation Stated Complaint: FALL Nursing Triage Note: pt brought in by [facility] from home with complaint of fall. pt is complaining of left hip pain. 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 Nursing Sepsis Screen: No Definite Risk Source: patient Exam Limitations: no limitations History of Present Illness Date Seen by Provider: Dec 14, 2019 Time Seen by Provider: 14:29 Initial Comments To ER per EMS from home with reports of left hip pain after a fall. She is on hospice for lung/breast cancer. She took 10 mg of morphine prior to EMS arrival. Still reports severe pain. Onset: just prior to arrival Severity: moderate Pain/Injury Location: left hip Method of Injury: fell Modifying Factors: Worse With Movement Allergies and Home Medications Allergies Coded Allergies: Penicillins (Verified Allergy, Unknown, 09/26/19) Sulfa (Sulfonamide Antibiotics) (Verified Allergy, Unknown, 09/26/19) Home Medications Acetaminophen 500 Mg Tablet, 500-1,000 MG PO Q4H PRN for PAIN-MILD (1-4), (Reported) Albuterol Sulfate 1 Puff Puff, 2 PUFF IH Q4H PRN for SHORTNESS OF BREATH, (Reported) 1 PUFF = 90 MCG Budesonide/Formoterol Fumarate 10.2 Gm Hfa.aer.ad, 2 PUFF IH BID, (Reported) Calcium Carb/Magnesium Hydrox 1 Each Tab.chew, 1 TAB.CHEW PO TID PRN for I NDIGESTION, (Reported) Carvedilol 6.25 Mg Tablet, 6.25 MG PO BID, (Reported) Cranberry Extract 500 Mg Tablet, 1 TAB PO DAILY, (Reported) Dextromethorphan HBr 15 Mg Capsule, 15 MG PO Q8H PRN for COUGH, (Reported) Docusate Sodium 100 Mg Capsule, 100 MG PO BID, (Reported) Furosemide 40 Mg Tablet, 40 MG PO DAILY PRN for SWELLING, (Reported) Gabapentin 100 Mg Capsule, 100 MG PO TID, (Reported) Hydrochlorothiazide 50 Mg Tablet, 25 MG PO DAILY TAKES 1/2 (50MG) TABLET Prescribed by: GORDY DESAI on 09/28/19 1208 Hydrocodone Bit/Acetaminophen 1 Each Tablet, 1 TAB PO BID PRN for PAIN-MODERATE (5-7), (Reported) Ibuprofen 600 Mg Tablet, 600 MG PO Q6H PRN for PAIN-MILD (1-4), (Reported) Lidocaine HCl 76.5 Gm Cream..g., TP QID PRN for MUSCLE PAIN, (Reported) Loperamide HCl 2 Mg Capsule, 2 MG PO UD PRN for DIARRHEA, (Reported) Melatonin/Lemon [place] Extr 1 Each Tablet, 1 TAB PO HS, (Reported) Omeprazole 20 Mg Capsule.dr, 20 MG PO BID, (Reported) Prednisone 10 Mg Tab.ds.pk, 10 MG PO DAILY Take 4 tabs(40mg)daily,decrease by 1 tab(10MG)daily. Prescribed by: GORDY DESAI on 09/28/19 1208 Sertraline HCl 50 Mg Tablet, 25 MG PO DAILY, (Reported) TAKES 1/2 (50MG) TABLET Tramadol HCl 50 Mg Tablet, 50 MG PO TID PRN for PAIN-MODERATE (5-7), (Reported) [Flory Hannah] , 1 CAP PO DAILY, (Reported) Patient Home Medication List Home Medication List Reviewed: Yes Review of Systems Constitutional: see HPI EENTM: see HPI Respiratory: no symptoms reported Cardiovascular: no symptoms reported Genitourinary: no symptoms reported Musculoskeletal: see HPI Skin: no symptoms reported Psychiatric/Neurological: No Symptoms Reported Past Yubxvhe-Luxhws-Smiwgt Hx Patient Social History Former Smoker, Quit: Aug 27, 1997 Recent Foreign Travel: No Contact w/Someone Who Travel: No Recent Infectious Disease Expo: No Recent Hopitalizations: No Immunizations Up To Date Date of Pneumonia Vaccine: Sep 26, 2016 Seasonal Allergies Seasonal Allergies: No Past Medical History COPD, Emphysema Cardiac: Yes High Cholesterol, Hypertension Neurological: No Neuropathy Sexually Transmitted Disease: No HIV/AIDS: No Genitourinary: No Gastrointestinal: Yes Gastroesophageal Reflux Musculoskeletal: Yes Arthritis Endocrine: No HEENT: Yes Cataract Cancer: Yes Breast What Type of Treatment Did You: Surgical Intervention Psychosocial: No Anxiety, Depression Integumentary: No Blood Disorders: No Adverse Reaction/Blood Tranf: No Physical Exam Vital Signs Vital Signs - First Documented 12/14/19 14:21 Temp 36.4 Pulse 60 Resp 20 B/P (MAP) 139/55 (83) Pulse Ox 96 O2 Delivery Room Air O2 Flow Rate 3.00 Capillary Refill : Less Than 3 Seconds Height, Weight, BMI Height: 5'3.00" Weight: 239lbs. 2.0oz. [id number]; 42.00 BMI Method: General Appearance: WD/WN, no apparent distress, obese Neck: non-tender, full range of motion Respiratory: no respiratory distress, no accessory muscle use Hips: bilateral hip normal inspection Legs: bilateral leg non-tender, bilateral leg normal inspection, bilateral leg normal range of motion Knees: bilateral knee non-tender, bilateral knee normal range of motion, bilateral knee swelling Ankles: bilateral ankle non-tender, bilateral ankle normal inspection, bilateral ankle normal range of motion, bilateral ankle swelling Feet: bilateral foot swelling Neurologic/Psychiatric: alert, normal mood/affect, oriented x 3 Skin: normal color, warm/dry Progress/Results/Core Measures Results/Orders My Orders Orders - SHERRILL CAMPOS APRN Pelvis (12/14/19 14:26) Morphine Injection (Morphine Injection (12/14/19 14:26) Vital Signs/I&O 12/14/19 14:21 Temp 36.4 Pulse 60 Resp 20 B/P (MAP) 139/55 (83) Pulse Ox 96 O2 Delivery Room Air O2 Flow Rate 3.00 Blood Pressure Mean: 83 Diagnostic Imaging Diagonstic Imaging: Xray Comments NAME: JOSE CANALES Justina MED REC#: [id number] PT STATUS: REG ER : 1935 PHYSICIAN: SHERRILL CAMPOS APRN ADMIT DATE: 12/14/19/ER Draft Date of Exam:12/14/19 PELVIS INDICATION: Left hip pain post fall TECHNIQUE: AP pelvis 2:48 PM CORRELATION STUDY: None FINDINGS: The pelvis demonstrates no evidence for acute fracture. The pectineal lines and obturator rings are maintained. Mild enthesopathy about the iliac crest. Advanced degenerative change visualized lower lumbar spine. Mild sclerosis pubic symphysis. Pubic symphysis and SI joints are unremarkable. Hips unremarkable. IMPRESSION: Negative for acute bony abnormality of the pelvis. Dictated on workstation # [id number] Dict: 12/14/19 1443 Trans: 12/14/19 144 SHERLEY [id number] Interpreted by: LEFTY DEL REAL DO Electronically signed by: Departure Communication (Admissions) Pt has severe left hip pain with passive ROM. She lives at home without anyone able to help take care of her. Spoke with Dr. Desai, alcohol hospitalist and see if we can get her emergently placed into a fdc. 1610-spoke with a social problems specialist from [facility], they have arranged placement for her at [facility] (formerly [facility]). I will write emergency admit orders 1629- she is now pain-free, able to ambulate to the door and back without any assistance other than a walker and she would like to go on home. Impression Primary Impression: Left hip pain Additional Impressions: inability to care for self Breast cancer Disposition: 03 XFER SNF Condition: Stable Departure-Patient Inst. Decision time for Depature: 16:31 Referrals: GORDY DESAI DO (PCP/Family) Primary Care Physician Patient Instructions: Hip Pain (DC) SHERRILL CAMPOS APRN Dec 14, 2019 14:31
--- NOTE | 2019-12-14 14:47 | Diagnostic Imaging Report ---
INDICATION: Left hip pain post fall TECHNIQUE: AP pelvis 2:48 PM CORRELATION STUDY: None FINDINGS: The pelvis demonstrates no evidence for acute fracture. The pectineal lines and obturator rings are maintained. Mild enthesopathy about the iliac crest. Advanced degenerative change visualized lower lumbar spine. Mild sclerosis pubic symphysis. Pubic symphysis and SI joints are unremarkable. Hips unremarkable. IMPRESSION: Negative for acute bony abnormality of the pelvis. Dictated by: Dictated on workstation # [id number]
[2019-12-14 16:43] VITALS: BP 129/61
== END 2019-12-14 16:43 ==
LOC: EDUNIT# 14:21 → ER 14:22
DX: M25.552 Pain in left hip (principal); W19.XXXA Unspecified fall, initial encounter; C50.919 Malignant neoplasm of unspecified site of unspecified female breast; C34.90 Malignant neoplasm of unspecified part of unspecified bronchus or lung; J43.9 Emphysema, unspecified; G62.9 Polyneuropathy, unspecified; F41.9 Anxiety disorder, unspecified; F32.9 Major depressive disorder, single episode, unspecified; K21.9 Gastro-esophageal reflux disease without esophagitis; E78.00 Pure hypercholesterolemia, unspecified; I10 Essential (primary) hypertension; M19.91 Primary osteoarthritis, unspecified site; Z88.0 Allergy status to penicillin; Z88.2 Allergy status to sulfonamides; Z87.891 Personal history of nicotine dependence; Z79.899 Other long term (current) drug therapy
CPT/HCPCS: 72170